=== PATIENT | female | born 1980 | race Caucasian/White ===

== ENCOUNTER 2016-06-17 19:55 | Emergency (ER) | payer OTHER ==
--- NOTE | 2016-06-17 20:41 | ED NURSING NOTES ---
Clinical Report - Nurses [facility] [address] [place] [address] 06/17/2016 19:57 Patient: TIO HAND TRIAGE Triage time 20:19 Jun 17 2016. Acuity: LEVEL 5. Chief Complaint: ITCHING and LICE. 20:22 06/17/16. SEPSIS SCREEN: Sepsis Screen. Negative (no infection suspected/documented). CL COMA SCORE: Cl Coma Scale: 15- eyes open spontaneously (4); best verbal response- oriented x 4 (5); best motor response- obeys commands (6). --20:22 Renetta Schmitt R.N. 20:22 06/17/16. BP: 140/91. HR: 91. RR: 16. O2 saturation: 100%. Temp: 98.9 F. Pain level now 0/10. --20:22 Renetta Schmitt R.N. Weight: 86.1 kg. Height/Length: 65 inches. BMI: 31.6. --20:19 Renetta Schmitt R.N. Medications Wellbutrin Oral, daily. --20:20 Renetta Schmitt R.N. Medication/allergy information source: the patient. --20:22 Renetta Schmitt R.N. Allergies Hydrocodone.(itching) --20:20 Renetta Schmitt R.N. History Arrived by private vehicle. Historian: patient. Accompanied by family. Onset. (weeks ago). No fever, weakness, cough, difficulty breathing or skin rash. Denies muscle aches. Treatment TRASH TRUCK DRIVER: (Nix- OTC). PAST MEDICAL HX: Immunizations: up-to-date. Denies current . SOCIAL HX: Never smoker. No alcohol use or drug use. No infectious disease exposure. ABUSE ASSESSMENT: No report of abuse. SELF HARM ASSESSMENT: A self harm assessment was performed. The patient answered "no" to the question "Have you recently felt down, depressed, or hopeless?", "Have you noticed less interest or pleasure in doing things?", "Do you have thoughts of harming or killing yourself?", "Are you here because you tried to hurt yourself?", "Have you ever tried to hurt yourself before today?", "Have you recently had thoughts about harming or killing others?" and "Do you have any dangerous items in your possession?". NUTRITIONAL RISK ASSESSMENT: The nutritional risk assessment revealed no deficiencies. FUNCTIONAL ASSESSMENT: Functional assessment: no impairments noted. LEARNING NEEDS ASSESSMENT: The learning needs assessment revealed no barriers. SKIN INTEGRITY ASSESSMENT: Skin integrity risk assessment completed. No skin integrity risk identified. --20:22 Renetta Schmitt R.N. PROBLEMS: Pyelonephritis. Pelvic Inflammatory Disease. Frequent UTI's . Migraine Headache. PTSD. --20:20 Renetta Schmitt R.N. ADDITIONAL SURGERIES: Appendectomy. Cholecystectomy. Knee Surgery. --20:20 Renetta Schmitt R.N. Interventions ID band on patient. --20:22 Renetta Schmitt R.N. PHYSICAL ASSESSMENT 20:23 06/17/16. GENERAL / NEURO / PSYCH: Alert. Oriented X 4. RESPIRATORY: Respirations not labored. Breath sounds within normal limits. CVS: Pulses within normal limits. SKIN: Skin intact. Skin is warm and dry. Normal skin turgor. --20:23 Renetta Schmitt R.N. NURSING PROGRESS NOTES 20:22 06/17/16. Patient ready for evaluation. --20:22 Renetta Schmitt R.N. DISPOSITION / DISCHARGE 20:53 06/17/16. Condition at departure: stable. No learning barriers present. Discharge instructions provided and reviewed with the patient. Reviewed medication(s) side effects, precautions, dosing and course information. Reviewed skin care instructions. Patient verbalized understanding. Written instructions provided in Greek. ( Reviewed instructions to launder clothing, bedding, and stuffed animals. Follow up with PCP in one week if symptoms do not improve.). The patient was discharged by the physician. She was discharged home and accompanied by family. She left the Emergency Department ambulatory and via private vehicle. Patient driving. --21:03 Mirtha Rubio 20:55 06/17/16. BP: deferred. HR: deferred. RR: deferred. O2 saturation: deferred. Temp: deferred. Pain level now deferred. --21:03 Mirtha Rubio. Locked/Released at 06/17/2016 21:03 by Mirtha Rubio,
--- NOTE | 2016-06-17 20:41 | ED CLINICAL REPORT ---
Clinical Report - Physicians/Mid Levels [facility] [address] [place] [address] 06/17/2016 19:57 Patient: TIO HAND Time Seen: 20:20; initial patient contact. Arrived- By private vehicle. Historian- patient. HISTORY OF PRESENT ILLNESS Chief Complaint: INSECT BITE. This started about 1 week ago and is still present. It is described as itchy. It has been located on the scalp. A cause has been identified. She had a recent insect bite. Similar symptoms previously: None. Recent medical care: Not recently seen/assessed. REVIEW OF SYSTEMS The patient received an insect bite. PAST HISTORY Pyelonephritis. Pelvic Inflammatory Disease. Frequent UTI's . Migraine Headache. PTSD. --20:20 Renetta Schmitt R.N. ADDITIONAL SURGERIES: Appendectomy. Cholecystectomy. Knee Surgery. Medications: Wellbutrin Oral, daily. Allergies: Hydrocodone.(itching). SOCIAL HISTORY Never smoker. No alcohol use or drug use. ADDITIONAL NOTES The nursing notes have been reviewed. PHYSICAL EXAM Vital Signs: 06/17/2016 20:22 BP: 140/91. HR: 91. RR: 16. O2 saturation: 100%. Temp: 98.9 F. Have been reviewed. Hypertensive. Heart rate normal. Respiratory rate normal. Temperature normal. Oxygen saturation normal. Appearance: Alert. Oriented X3. No acute distress. Skin: Rash present on the scalp (lice visualized). Neuro: Oriented X 3. PROGRESS AND PROCEDURES Disposition: Discharged home in good condition. Condition: good. CLINICAL IMPRESSION Head lice INSTRUCTIONS Prescription Medications: Permethrin 5% Cream: Shower and dry thoroughly, then apply cream to whole body from neck down, leave on 8 hours then shower thoroughly and launder clothes and bedclothes in hot water. Repeat in 1 week if needed. Dispense two (2) tubes. No refills. Follow-up: Screening today revealed the patient's blood pressure to be in the hypertensive range. The patient should follow up with a primary care provider for blood pressure management. (Electronically signed by Elías Fuller Dr. 06/17/2016 21:40)
--- NOTE | 2016-06-17 20:41 | ED CLINICAL REPORT ---
Clinical Report - Physicians/Mid Levels [facility] [address] [place] [address] 06/17/2016 19:57 Patient: TIO HAND Time Seen: 20:20; initial patient contact. Arrived- By private vehicle. Historian- patient. HISTORY OF PRESENT ILLNESS Chief Complaint: INSECT BITE. This started about 1 week ago and is still present. It is described as itchy. It has been located on the scalp. A cause has been identified. She had a recent insect bite. Similar symptoms previously: None. Recent medical care: Not recently seen/assessed. REVIEW OF SYSTEMS The patient received an insect bite. PAST HISTORY Pyelonephritis. Pelvic Inflammatory Disease. Frequent UTI's . Migraine Headache. PTSD. --20:20 Renetta Schmitt R.N. ADDITIONAL SURGERIES: Appendectomy. Cholecystectomy. Knee Surgery. Medications: Wellbutrin Oral, daily. Allergies: Hydrocodone.(itching). SOCIAL HISTORY Never smoker. No alcohol use or drug use. ADDITIONAL NOTES The nursing notes have been reviewed. PHYSICAL EXAM Vital Signs: 06/17/2016 20:22 BP: 140/91. HR: 91. RR: 16. O2 saturation: 100%. Temp: 98.9 F. Have been reviewed. Hypertensive. Heart rate normal. Respiratory rate normal. Temperature normal. Oxygen saturation normal. Appearance: Alert. Oriented X3. No acute distress. Skin: Rash present on the scalp (lice visualized). Neuro: Oriented X 3. PROGRESS AND PROCEDURES Disposition: Discharged home in good condition. Condition: good. CLINICAL IMPRESSION Head lice INSTRUCTIONS Prescription Medications: Permethrin 5% Cream: Shower and dry thoroughly, then apply cream to whole body from neck down, leave on 8 hours then shower thoroughly and launder clothes and bedclothes in hot water. Repeat in 1 week if needed. Dispense two (2) tubes. No refills. Follow-up: Screening today revealed the patient's blood pressure to be in the hypertensive range. The patient should follow up with a primary care provider for blood pressure management. (Electronically signed by Elías Fuller Dr. 06/17/2016 21:40)
--- NOTE | 2016-06-17 20:41 | ED NURSING NOTES ---
Clinical Report - Nurses [facility] [address] [place] [address] 06/17/2016 19:57 Patient: TIO HAND TRIAGE Triage time 20:19 Jun 17 2016. Acuity: LEVEL 5. Chief Complaint: ITCHING and LICE. 20:22 06/17/16. SEPSIS SCREEN: Sepsis Screen. Negative (no infection suspected/documented). CL COMA SCORE: Cl Coma Scale: 15- eyes open spontaneously (4); best verbal response- oriented x 4 (5); best motor response- obeys commands (6). --20:22 Renetta Schmitt R.N. 20:22 06/17/16. BP: 140/91. HR: 91. RR: 16. O2 saturation: 100%. Temp: 98.9 F. Pain level now 0/10. --20:22 Renetta Schmitt R.N. Weight: 86.1 kg. Height/Length: 65 inches. BMI: 31.6. --20:19 Renetta Schmitt R.N. Medications Wellbutrin Oral, daily. --20:20 Renetta Schmitt R.N. Medication/allergy information source: the patient. --20:22 Renetta Schmitt R.N. Allergies Hydrocodone.(itching) --20:20 Renetta Shcmitt R.N. History Arrived by private vehicle. Historian: patient. Accompanied by family. Onset. (weeks ago). No fever, weakness, cough, difficulty breathing or skin rash. Denies muscle aches. Treatment LOG FEEDER: (Nix- OTC). PAST MEDICAL HX: Immunizations: up-to-date. Denies current . SOCIAL HX: Never smoker. No alcohol use or drug use. No infectious disease exposure. ABUSE ASSESSMENT: No report of abuse. SELF HARM ASSESSMENT: A self harm assessment was performed. The patient answered "no" to the question "Have you recently felt down, depressed, or hopeless?", "Have you noticed less interest or pleasure in doing things?", "Do you have thoughts of harming or killing yourself?", "Are you here because you tried to hurt yourself?", "Have you ever tried to hurt yourself before today?", "Have you recently had thoughts about harming or killing others?" and "Do you have any dangerous items in your possession?". NUTRITIONAL RISK ASSESSMENT: The nutritional risk assessment revealed no deficiencies. FUNCTIONAL ASSESSMENT: Functional assessment: no impairments noted. LEARNING NEEDS ASSESSMENT: The learning needs assessment revealed no barriers. SKIN INTEGRITY ASSESSMENT: Skin integrity risk assessment completed. No skin integrity risk identified. --20:22 Renetta Schmitt R.N. PROBLEMS: Pyelonephritis. Pelvic Inflammatory Disease. Frequent UTI's . Migraine Headache. PTSD. --20:20 Renetta Schmitt R.N. ADDITIONAL SURGERIES: Appendectomy. Cholecystectomy. Knee Surgery. --20:20 Renetta Schmitt R.N. Interventions ID band on patient. --20:22 Renetta Schmitt R.N. PHYSICAL ASSESSMENT 20:23 06/17/16. GENERAL / NEURO / PSYCH: Alert. Oriented X 4. RESPIRATORY: Respirations not labored. Breath sounds within normal limits. CVS: Pulses within normal limits. SKIN: Skin intact. Skin is warm and dry. Normal skin turgor. --20:23 Renetta Schmitt R.N. NURSING PROGRESS NOTES 20:22 06/17/16. Patient ready for evaluation. --20:22 Renetta Schmitt R.N. DISPOSITION / DISCHARGE 20:53 06/17/16. Condition at departure: stable. No learning barriers present. Discharge instructions provided and reviewed with the patient. Reviewed medication(s) side effects, precautions, dosing and course information. Reviewed skin care instructions. Patient verbalized understanding. Written instructions provided in Georgian. ( Reviewed instructions to launder clothing, bedding, and stuffed animals. Follow up with PCP in one week if symptoms do not improve.). The patient was discharged by the physician. She was discharged home and accompanied by family. She left the Emergency Department ambulatory and via private vehicle. Patient driving. --21:03 Mirtha Rubio 20:55 06/17/16. BP: deferred. HR: deferred. RR: deferred. O2 saturation: deferred. Temp: deferred. Pain level now deferred. --21:03 Mirtha Rubio. Locked/Released at 06/17/2016 21:03 by Mirtha Rubio,
--- NOTE | 2016-06-17 21:40 | ED MED RECONCILIATION SUMMARY ---
Patient: TIO HAND Medication Reconciliation Report [facility] VisitID: [id number] [address] [place] [address] 36y, F Registration Date/Time: 06/17/2016 Weight: 86.1 kg Height/Length: 65 in. BMI: 31.6 ALLERGIES: Hydrocodone The patient's Home Medications are listed below: THE FOLLOWING MEDICATIONS NEED TO BE RECONCILED: Wellbutrin Oral, daily The source(s) of the original Home Medication information: patient The following Medications were given to the patient in the Emergency Department: None. The following Medications were prescribed to the patient: Permethrin 5% Cream: Shower and dry thoroughly, then apply cream to whole body from neck down, leave on 8 hours then shower thoroughly and launder clothes and bedclothes in hot water. Repeat in 1 week if needed. Dispense two (2) tubes. No refills. -- Elías Fuller Dr.
--- NOTE | 2016-06-17 21:40 | ED DISCHARGE INSTRUCTIONS ---
Patient: TIO AHND General Instructions [facility] VisitID: [id number] [address] [address] 36y, F Registration Date/Time: 06/17/2016 Head lice INSTRUCTIONS Prescription Medications: Permethrin 5% Cream: Shower and dry thoroughly, then apply cream to whole body from neck down, leave on 8 hours then shower thoroughly and launder clothes and bedclothes in hot water. Repeat in 1 week if needed. Dispense two (2) tubes. No refills. Follow-up: Screening today revealed the patient's blood pressure to be in the hypertensive range. The patient should follow up with a primary care provider for blood pressure management. ADDITIONAL INFORMATION Head Lice Lice are tiny insects about 1/4" in length. Head Lice infect the scalp only, causing scalp itching. Lice lay eggs called "nits" that look like tiny white specs stuck to the hair. They do not brush away or wash off like dandruff. Lice are easily spread by close contact with an infected person or by sharing personal items such as hats, copeland, brushes, towels and bedding. To live, adult lice must feed on blood. If the louse falls off a person, it dies within 1-2 days. Home Care: NIX Cream Rinse is an [id number] medicine that is often used to treat Head lice. If your doctor recommends this, use as follows: Wash hair with your regular shampoo. Rinse with water and towel dry. Apply enough NIX to soak the entire hair and scalp area including behind the ears and back of neck. Rinse after exactly 10 minutes. [NOTE: or breast feeding women and children under 2 years should not use these medicines until discussing with your doctor.] To remove the nits from your hair: After the medicine has been washed from your hair, apply a mixture of one cup vinegar and one cup water. Rinse after one hour. For a stronger effect, put a shower cap on and leave the vinegar in your hair overnight. Rinse your hair in the morning. Use a fine-toothed comb made for removing nits (you can get it from the drugstore). Stroke from your scalp to the end of the hair shaft. Repeat this once a day until all nits are gone. All personal head wear, scarves, coats, bed linens and towels should be treated by machine-washing in hot water. Dry on the hot cycle of the dryer for 20 minutes. Any clothing, bed linen or stuffed animals that cannot be washed this way should be dry-cleaned or sealed in a plastic bag for two weeks. Lice will during this time. Copeland, brushes, barrettes, hair ties and curlers may be treated in Lysol or rubbing alcohol for two hours or boiling in water for 5-10 minutes. If possible, vacuum all rugs, carpets and mattresses that were used while you were infected. Sex partners and household members should be treated at the same time to prevent re-infection. Avoid sexual contact until rechecked by your doctor to confirm that all lice are gone. Oral Benadryl (diphenhydramine) is an antihistamine available at drug and grocery stores. Unless a prescription antihistamine was given, Benadryl may be used to reduce itching if large areas of the skin are involved. Use lower doses during the daytime and higher doses at bedtime since the drug may make you sleepy. [NOTE: Do not use Benadryl if you have glaucoma or if you are a man with trouble urinating due to an enlarged prostate.] Claritin (loratidine) is an antihistamine that causes less drowsiness and is a good alternative for daytime use. Follow Up with your doctor or this facility if you are still having scalp itching or see live lice in your hair SEVEN DAYS after the first treatment. Get Prompt Medical Attention if any of the following occur: Itching gets worse and is not relieved by Benadryl Scalp becomes swollen or tender or pus drains from scalp sores Hair becomes matted or foul-smelling Trouble breathing Permethrin Topical cream What is this medicine? PERMETHRIN (per METH rin) skin cream is used to treat scabies. How should I use this medicine? This medicine is for external use only. Do not take by mouth. Follow the directions on the prescription label. A bath or shower is NOT recommended before applying this medicine. Thoroughly rub the cream into all skin surfaces, from your head to the soles of your feet. It is important to apply it everywhere on your body, not just where the rash is. Apply the cream between fingers and toe creases, in the folds of the wrist and waistline, in the cleft of the buttocks, on the genitals, and in the belly button. Use a toothpick to apply the cream beneath your fingernails and toenails. Nails should be cut short. If you have little or no hair, or you are applying the cream to an infant or young child, make sure you rub the cream into the neck, scalp, hairline, temples, and forehead. Leave it on for 8 to 14 hours, then remove it by bathing and shampooing. If you are applying this medicine to another person, wear plastic or disposable gloves to protect yourself from infestation. Do not get this medicine in your eyes. If you do, rinse out with plenty of cool tap water. Talk to your junior systems engineer regarding the use of this medicine in children. While this drug may be prescribed for children as young as 2 months of age for selected conditions, precautions do apply. What side effects may I notice from receiving this medicine? Side effects that usually do not require medical attention (report to your doctor or health medicare sales representative if they continue or are bothersome): itching numbness rash redness or mild swelling of the skin stinging or burning tingling sensation What may interact with this medicine? Interactions are not expected. Do not use any other skin products on the affected area without telling your doctor or health medicare sales representative. What if I miss a dose? This does not apply. Where should I keep my medicine? Keep out of the reach of children. Store at room temperature away from heat and direct light. Do not refrigerate or freeze. Throw away any unused medicine after the expiration date. What should I tell my health care provider before I take this medicine? They need to know if you have any of these conditions: asthma an unusual or allergic reaction to permethrin, veterinary or household insecticides, other medicines, chrysanthemums, foods, dyes, or preservatives or trying to get breast-feeding What should I watch for while using this medicine? It is not unusual for itching and rash to continue for as long as 2 to 4 weeks after treatment. These symptoms may be a temporary reaction to the remains of the mites. This does not mean this cream did not work or that it needs to be reapplied. If you feel that the itching and rash is intense or if it continues beyond 4 weeks, talk to your doctor or health medicare sales representative right away. Scabies is spread by direct skin contact with an infected person. Family members and sexual partners may require treatment with this medicine. You should discuss this with your doctor or health medicare sales representative. Using a normal washing cycle, you should wash all clothing, towels and bed linen that has touched your skin. You do not need to rewash clean clothing that has not yet been worn. [place], furniture, rugs, floors, and garcia do not need to be cleaned in any special manner. You have been given the following additional information: Lice, Head Permethrin Topical cream (Electronically signed by Elías Fuller Dr. 06/17/2016 21:40)
--- NOTE | 2016-06-17 21:40 | ED MAR SUMMARY ---
..... Medication Administration Record [address] [address], [place] [id number] Patient: TIO HAND Visit ID: [id number] 36y, F Weight: 86.1 kg Height/Length: 65 in BMI: 31.6 ALLERGIES: Hydrocodone
--- NOTE | 2016-06-17 21:40 | ED DISCHARGE INSTRUCTIONS ---
Patient: TIO HAND General Instructions VisitID: [id number] [address] [address] 36y, F Registration Date/Time: 06/17/2016 Head lice INSTRUCTIONS Prescription Medications: Permethrin 5% Cream: Shower and dry thoroughly, then apply cream to whole body from neck down, leave on 8 hours then shower thoroughly and launder clothes and bedclothes in hot water. Repeat in 1 week if needed. Dispense two (2) tubes. No refills. Follow-up: Screening today revealed the patient's blood pressure to be in the hypertensive range. The patient should follow up with a primary care provider for blood pressure management. ADDITIONAL INFORMATION Head Lice Lice are tiny insects about 1/4" in length. Head Lice infect the scalp only, causing scalp itching. Lice lay eggs called "nits" that look like tiny white specs stuck to the hair. They do not brush away or wash off like dandruff. Lice are easily spread by close contact with an infected person or by sharing personal items such as hats, copeland, brushes, towels and bedding. To live, adult lice must feed on blood. If the louse falls off a person, it dies within 1-2 days. Home Care: NIX Cream Rinse is an [id number] medicine that is often used to treat Head lice. If your doctor recommends this, use as follows: Wash hair with your regular shampoo. Rinse with water and towel dry. Apply enough NIX to soak the entire hair and scalp area including behind the ears and back of neck. Rinse after exactly 10 minutes. [NOTE: or breast feeding women and children under 2 years should not use these medicines until discussing with your doctor.] To remove the nits from your hair: After the medicine has been washed from your hair, apply a mixture of one cup vinegar and one cup water. Rinse after one hour. For a stronger effect, put a shower cap on and leave the vinegar in your hair overnight. Rinse your hair in the morning. Use a fine-toothed comb made for removing nits (you can get it from the drugstore). Stroke from your scalp to the end of the hair shaft. Repeat this once a day until all nits are gone. All personal head wear, scarves, coats, bed linens and towels should be treated by machine-washing in hot water. Dry on the hot cycle of the dryer for 20 minutes. Any clothing, bed linen or stuffed animals that cannot be washed this way should be dry-cleaned or sealed in a plastic bag for two weeks. Lice will during this time. Copeland, brushes, barrettes, hair ties and curlers may be treated in Lysol or rubbing alcohol for two hours or boiling in water for 5-10 minutes. If possible, vacuum all rugs, carpets and mattresses that were used while you were infected. Sex partners and household members should be treated at the same time to prevent re-infection. Avoid sexual contact until rechecked by your doctor to confirm that all lice are gone. Oral Benadryl (diphenhydramine) is an antihistamine available at drug and grocery stores. Unless a prescription antihistamine was given, Benadryl may be used to reduce itching if large areas of the skin are involved. Use lower doses during the daytime and higher doses at bedtime since the drug may make you sleepy. [NOTE: Do not use Benadryl if you have glaucoma or if you are a man with trouble urinating due to an enlarged prostate.] Claritin (loratidine) is an antihistamine that causes less drowsiness and is a good alternative for daytime use. Follow Up with your doctor or this facility if you are still having scalp itching or see live lice in your hair SEVEN DAYS after the first treatment. Get Prompt Medical Attention if any of the following occur: Itching gets worse and is not relieved by Benadryl Scalp becomes swollen or tender or pus drains from scalp sores Hair becomes matted or foul-smelling Trouble breathing Permethrin Topical cream What is this medicine? PERMETHRIN (per METH rin) skin cream is used to treat scabies. How should I use this medicine? This medicine is for external use only. Do not take by mouth. Follow the directions on the prescription label. A bath or shower is NOT recommended before applying this medicine. Thoroughly rub the cream into all skin surfaces, from your head to the soles of your feet. It is important to apply it everywhere on your body, not just where the rash is. Apply the cream between fingers and toe creases, in the folds of the wrist and waistline, in the cleft of the buttocks, on the genitals, and in the belly button. Use a toothpick to apply the cream beneath your fingernails and toenails. Nails should be cut short. If you have little or no hair, or you are applying the cream to an infant or young child, make sure you rub the cream into the neck, scalp, hairline, temples, and forehead. Leave it on for 8 to 14 hours, then remove it by bathing and shampooing. If you are applying this medicine to another person, wear plastic or disposable gloves to protect yourself from infestation. Do not get this medicine in your eyes. If you do, rinse out with plenty of cool tap water. Talk to your bow maker custom regarding the use of this medicine in children. While this drug may be prescribed for children as young as 2 months of age for selected conditions, precautions do apply. What side effects may I notice from receiving this medicine? Side effects that usually do not require medical attention (report to your doctor or health home health care case manager if they continue or are bothersome): itching numbness rash redness or mild swelling of the skin stinging or burning tingling sensation What may interact with this medicine? Interactions are not expected. Do not use any other skin products on the affected area without telling your doctor or health home health care case manager. What if I miss a dose? This does not apply. Where should I keep my medicine? Keep out of the reach of children. Store at room temperature away from heat and direct light. Do not refrigerate or freeze. Throw away any unused medicine after the expiration date. What should I tell my health care provider before I take this medicine? They need to know if you have any of these conditions: asthma an unusual or allergic reaction to permethrin, veterinary or household insecticides, other medicines, chrysanthemums, foods, dyes, or preservatives or trying to get breast-feeding What should I watch for while using this medicine? It is not unusual for itching and rash to continue for as long as 2 to 4 weeks after treatment. These symptoms may be a temporary reaction to the remains of the mites. This does not mean this cream did not work or that it needs to be reapplied. If you feel that the itching and rash is intense or if it continues beyond 4 weeks, talk to your doctor or health home health care case manager right away. Scabies is spread by direct skin contact with an infected person. Family members and sexual partners may require treatment with this medicine. You should discuss this with your doctor or health home health care case manager. Using a normal washing cycle, you should wash all clothing, towels and bed linen that has touched your skin. You do not need to rewash clean clothing that has not yet been worn. [place], furniture, rugs, floors, and garcia do not need to be cleaned in any special manner. You have been given the following additional information: Lice, Head Permethrin Topical cream (Electronically signed by Elías Fuller Dr. 06/17/2016 21:40)
--- NOTE | 2016-06-17 21:40 | ED MAR SUMMARY ---
..... Medication Administration Record [facility] [address], [place] [id number] Patient: TIO HAND Visit ID: [id number] 36y, F Weight: 86.1 kg Height/Length: 65 in BMI: 31.6 ALLERGIES: Hydrocodone
--- NOTE | 2016-06-17 21:40 | ED MED RECONCILIATION SUMMARY ---
Patient: TIO HAND Medication Reconciliation Report [facility] VisitID: [id number] [address] [place] [address] 36y, F Registration Date/Time: 06/17/2016 Weight: 86.1 kg Height/Length: 65 in. BMI: 31.6 ALLERGIES: Hydrocodone The patient's Home Medications are listed below: THE FOLLOWING MEDICATIONS NEED TO BE RECONCILED: Wellbutrin Oral, daily The source(s) of the original Home Medication information: patient The following Medications were given to the patient in the Emergency Department: None. The following Medications were prescribed to the patient: Permethrin 5% Cream: Shower and dry thoroughly, then apply cream to whole body from neck down, leave on 8 hours then shower thoroughly and launder clothes and bedclothes in hot water. Repeat in 1 week if needed. Dispense two (2) tubes. No refills. -- Elías Fuller Dr.
== END 2016-06-17 20:55 | disposition home or self-care (01) ==
LOC: ED SRH 19:55
DX: B85.0 Pediculosis due to Pediculus humanus capitis (principal); W57.XXXA Bitten or stung by nonvenomous insect and other nonvenomous arthropods, initial encounter; Y93.9 Activity, unspecified; Y92.9 Unspecified place or not applicable; Y99.9 Unspecified external cause status; Z88.5 Allergy status to narcotic agent; Z79.899 Other long term (current) drug therapy

== ENCOUNTER 2016-09-15 19:14 | Emergency (ER) | payer OTHER ==
--- NOTE | 2016-09-15 23:20 | ED NURSING NOTES ---
Clinical Report - Nurses [facility] [address] [place] [address] 09/15/2016 19:18 Patient: TIO HAND TRIAGE Triage time 19:Sep 15 2016. Acuity: LEVEL 3. Chief Complaint: BACK PAIN. SEPSIS SCREEN: Sepsis Screen: negative. Negative (no infection suspected/documented). ROSMERY COMA SCORE: [place] Coma Scale: 15- eyes open spontaneously (4); best verbal response- oriented x 4 (5); best motor response- obeys commands (6). --19:25 Mirtha Rubio 19:22 09/15/16. BP: 124/71. HR: 90. RR: 20. O2 saturation: 100% on room air. Temp: 98.2 F (oral). Pain level now: 11/14. --19:25 Mirtha Rubio. Weight: 86.1 kg stated. Height/Length: 65 inches Per Patient. BMI: 31.6. --19:23 Mirtha Rubio. Medications Wellbutrin Oral, daily. --19:24 Mirtha Rubio. Allergies Hydrocodone.(itching) --19:24 Mirtha Rubio. Medication/allergy information source: the patient. --19:25 Mirtha Rubio. History Arrived by private vehicle. Historian: patient. Accompanied by family. Primary physician (nyasia simental [place]). This started today. ( Patient reports that she has been having lower back pain that radiates into her shoulders for about three days. She attempted to make an appointment with her PCP but her pain got worse today.). No history of recent trauma. PAST MEDICAL HX: Tetanus status: up-to-date. Immunizations: up-to-date. Last normal menstrual period- August 16. SOCIAL HX: Never smoker. Occasional alcohol use. No drug use. No infectious disease exposure. ABUSE ASSESSMENT: No report of abuse. FALL RISK ASSESSMENT: Fall risk assessment completed. No fall risk identified. NUTRITIONAL RISK ASSESSMENT: The nutritional risk assessment revealed no deficiencies. FUNCTIONAL ASSESSMENT: Functional assessment: no impairments noted. LEARNING NEEDS ASSESSMENT: The learning needs assessment revealed no barriers. SKIN INTEGRITY ASSESSMENT: Skin integrity risk assessment completed. No skin integrity risk identified. --19:25 Mirtha Rubio. PROBLEMS: Pelvic Inflammatory Disease. Frequent UTI's . Migraine Headache. PTSD. --19:24 Mirtha Rubio. ADDITIONAL SURGERIES: Appendectomy. Cholecystectomy. Knee Surgery. --19:24 Mirtha Rubio. Interventions ID band on patient. To treatment room. --19:25 Mirtha Rubio. PHYSICAL ASSESSMENT :09/15/16. GENERAL / NEURO / PSYCH: Alert. Oriented X 4. Appears in no acute distress. RESPIRATORY: Respirations not labored. CVS: Normal heart rate and rhythm. GI / : Abdomen soft. EXTREMITIES: Sensation intact in extremities. ROM of extremities within normal limits. BACK: Normal inspection of the neck and back. ROM of neck and back within normal limits. --19:26 Mirtha Rubio. NURSING PROGRESS NOTES :09/15/16. Cold pack applied. Patient gowned. Warming measures: blanket applied. Reassurance given to the patient. Two patient identifiers checked. Call light placed in reach. Side rails up x 1. Bed placed in lowest position. Brakes of bed on. Patient ready for evaluation- chart flagged and ED physician notified. --19:26 Mirtha Rubio ( Patient made aware of need for urine. Patient given PO with provider permission). --19:33 Mirtha Rubio 19:39 09/15/2016 Toradol (Ketorolac Tromethamine) IM 60 mg given. Given in the left gluteus stephanie. Allergies verified and confirmed 5 rights. --19:39 Mirtha Rubio Patient ID band checked for patient name and birthdate: patient confirmed. Instructions provided to collect clean catch urine and patient verbalized understanding. Clean catch urine collected with return of yellow-colored clear urine; sample sent to lab for urinalysis and HCG. Specimen labeled in the presence of the patient. --20:40 Mirtha Rubio 21:11 09/15/2016 Site #1 started via IV in the right antecubital space with an 20g angiocath, with aseptic technique and good blood return; one attempt. Blood drawn: rainbow set. Labeled in the presence of the patient and sent to the lab. Saline lock flushed with 10 mL saline. --21:16 Mirtha Rubio PELVIC EXAM: Pelvic exam performed by PA. Assisted by one nurse. Preparation: pelvic tray; patient placed in lithotomy position. Procedure: speculum and bimanual exam. Status post-procedure: she was stable and no complications were noted. Total time of assist / procedure: 15 minutes. --21:19 Mirtha Rubio ( Discussed patients result discussed with her. Patient upset about lab results. Plan of care discussed with patient and patient is agreeable to the plan at this time.). --21:20 Mirtha Rubio 21:20 09/15/16. BP: 120/66. HR: 84. RR: 20. O2 saturation: 100% on room air. Pain level now: 09/14. --21:48 Mirtha Rubio ( Ultrasound paged). --21:48 Mirtha Rubio The patient is resting quietly. --21:48 Mirtha Rubio 21:48 09/15/16. BP: 112/67. HR: 90. RR: 20. O2 saturation: 100% on room air. --21:48 Mirtha Rubio 22:01 Ultrasound at bedside. --22:01 McQuoid, Linsey, ER Tech1 22:45 09/15/16. BP: 119/59. HR: 72. RR: 20. O2 saturation: 99% on room air. --22:45 Mirtha Rubio. DISPOSITION / DISCHARGE 23:22 09/15/16. BP: 131/80. HR: 78. O2 saturation: 100% on room air. --23:22 McQuoid, Linsey, ER Tech1 23:30 09/15/16. Pain level now: 07/15. --23:32 Mirtha Rubio 23:32 09/15/2016 Site #1 removed upon discharge. Catheter intact. Bandaid applied. --23:32 Mirtha Rubio 23:32 09/15/16. Condition at departure: stable. The goals identified in the patient's plan of care were met. No learning barriers present. Discharge instructions provided and reviewed with the patient. Reviewed medication(s) side effects, precautions, dosing and course information. Prescription(s) given to the patient. Reviewed need for increased fluid intake. Patient verbalized understanding. Written instructions provided in Croatian. ( You need to follow up with your PCP for a next available appointment. Call tomorrow. Return if your symptoms worsen, if you have sudden onset of fever, bleeding or pain. You will need follow up to determine next course of treatment. Patient agreeable to plan and will follow up tomorrow.). The patient was discharged by the nurse practitioner. She was discharged home and accompanied by phonograph cartridge assembler. She left the Emergency Department ambulatory and via private vehicle. Patient driving. FALL RISK ASSESSMENT: Fall risk assessment completed. No fall risk identified. --23:32 Mirtha Rubio. Locked/Released at 09/15/2016 23:44 by Mirtha Rubio,
--- NOTE | 2016-09-15 23:20 | ED ORDER SUMMARY ---
..... Patient: TIO HAND OrderSheet [facility] VisitID: [id number] [address] [place] [address] 36y, F Registration Date/Time: 09/15/2016 ORDER SHEET Weight: 86.1 kg (stated) Allergies: Hydrocodone GENERAL ORDERS: UA-Culture if indicated Urgent (:09/15/2016 HBivens A.R.N.P.) (Ack 19:35 LMuller) (20:46 AMcQuoid ER Tech1) Urine Urgent (:09/15/2016 HBivens A.R.N.P.) (Ack 19:35 LMuller) (20:46 AMcQuoid ER Tech1) US OB 1st Trimester w Transvag (4 wks ago) Urgent (21:09/15/2016 HBivens A.R.N.P.) (Ack 21:02 LMuller) (22:39 LMuller) CBC w Diff Urgent (:09/15/2016 HBivens A.R.N.P.) (Ack 21:02 LMuller) (21:53 AMcQuoid ER Tech1) CMP Urgent (:09/15/2016 HBivens A.R.N.P.) (Ack 21:02 LMuller) (21:53 AMcQuoid ER Tech1) Serum Quantitative Urgent (:09/15/2016 HBivens A.R.N.P.) (Ack 21:02 LMuller) (21:53 AMcQuoid ER Tech1) Pelvic Exam Setup (:09/15/2016 HBivens A.R.N.P.) (Ack 21:02 LMuller) (21:15 HSoule) Pelvis 1 or 2V Urgent (23:08 09/15/2016 HBivens A.R.N.P.) (Ack 23:10 LMuller) (23:18 HBivens A.R.N.P.) (Cancelled: Other23:18 HBivens A.R.N.P.) MEDICATION ORDERS: Toradol IM 60 mg (NOW) (19:34 09/15/2016 HBivens A.R.N.P.) (Ack 19:35 HSoule) (19:39 HSoule) IV FLUIDS: ORDER SHEET NOTES: [Electronically signed by Mirtha Rubio (23:44 09/15/2016)] [Electronically signed by Kimi Crocker.R.N.POniel (13:03 09/16/2016)] [Electronically locked/signed by Mirtha Rubio (23:44 09/15/2016)]
--- NOTE | 2016-09-15 23:20 | ED NURSING NOTES ---
Clinical Report - Nurses [facility] [address] [place] [address] 09/15/2016 19:18 Patient: TIO HAND TRIAGE Triage time 19:Sep 15 2016. Acuity: LEVEL 3. Chief Complaint: BACK PAIN. SEPSIS SCREEN: Sepsis Screen: negative. Negative (no infection suspected/documented). ROSMERY COMA SCORE: [place] Coma Scale: 15- eyes open spontaneously (4); best verbal response- oriented x 4 (5); best motor response- obeys commands (6). --19:25 Mirtha Rubio 19:22 09/15/16. BP: 124/71. HR: 90. RR: 20. O2 saturation: 100% on room air. Temp: 98.2 F (oral). Pain level now: 11/14. --19:25 Mirtha Rubio. Weight: 86.1 kg stated. Height/Length: 65 inches Per Patient. BMI: 31.6. --19:23 Mirtha Rubio. Medications Wellbutrin Oral, daily. --19:24 Mirtha Rubio. Allergies Hydrocodone.(itching) --19:24 Mirtha Rubio. Medication/allergy information source: the patient. --19:25 Mirtha Rubio. History Arrived by private vehicle. Historian: patient. Accompanied by family. Primary physician (nyasia simental [place]). This started today. ( Patient reports that she has been having lower back pain that radiates into her shoulders for about three days. She attempted to make an appointment with her PCP but her pain got worse today.). No history of recent trauma. PAST MEDICAL HX: Tetanus status: up-to-date. Immunizations: up-to-date. Last normal menstrual period- August 16. SOCIAL HX: Never smoker. Occasional alcohol use. No drug use. No infectious disease exposure. ABUSE ASSESSMENT: No report of abuse. FALL RISK ASSESSMENT: Fall risk assessment completed. No fall risk identified. NUTRITIONAL RISK ASSESSMENT: The nutritional risk assessment revealed no deficiencies. FUNCTIONAL ASSESSMENT: Functional assessment: no impairments noted. LEARNING NEEDS ASSESSMENT: The learning needs assessment revealed no barriers. SKIN INTEGRITY ASSESSMENT: Skin integrity risk assessment completed. No skin integrity risk identified. --19:25 Mirtha Rubio. PROBLEMS: Pelvic Inflammatory Disease. Frequent UTI's . Migraine Headache. PTSD. --19:24 Mirtha Rubio. ADDITIONAL SURGERIES: Appendectomy. Cholecystectomy. Knee Surgery. --19:24 Mirtha Rubio. Interventions ID band on patient. To treatment room. --19:25 Mirtha Rubio. PHYSICAL ASSESSMENT :09/15/16. GENERAL / NEURO / PSYCH: Alert. Oriented X 4. Appears in no acute distress. RESPIRATORY: Respirations not labored. CVS: Normal heart rate and rhythm. GI / : Abdomen soft. EXTREMITIES: Sensation intact in extremities. ROM of extremities within normal limits. BACK: Normal inspection of the neck and back. ROM of neck and back within normal limits. --19:26 Mirtha Rubio. NURSING PROGRESS NOTES :09/15/16. Cold pack applied. Patient gowned. Warming measures: blanket applied. Reassurance given to the patient. Two patient identifiers checked. Call light placed in reach. Side rails up x 1. Bed placed in lowest position. Brakes of bed on. Patient ready for evaluation- chart flagged and ED physician notified. --19:26 Mirtha Rubio ( Patient made aware of need for urine. Patient given PO with provider permission). --19:33 Mirtha Rubio 19:39 09/15/2016 Toradol (Ketorolac Tromethamine) IM 60 mg given. Given in the left gluteus stephanie. Allergies verified and confirmed 5 rights. --19:39 Mirtha Rubio Patient ID band checked for patient name and birthdate: patient confirmed. Instructions provided to collect clean catch urine and patient verbalized understanding. Clean catch urine collected with return of yellow-colored clear urine; sample sent to lab for urinalysis and HCG. Specimen labeled in the presence of the patient. --20:40 Mirtha Rubio 21:11 09/15/2016 Site #1 started via IV in the right antecubital space with an 20g angiocath, with aseptic technique and good blood return; one attempt. Blood drawn: rainbow set. Labeled in the presence of the patient and sent to the lab. Saline lock flushed with 10 mL saline. --21:16 Mirtha Rubio PELVIC EXAM: Pelvic exam performed by PA. Assisted by one nurse. Preparation: pelvic tray; patient placed in lithotomy position. Procedure: speculum and bimanual exam. Status post-procedure: she was stable and no complications were noted. Total time of assist / procedure: 15 minutes. --21:19 Mirtha Rubio ( Discussed patients result discussed with her. Patient upset about lab results. Plan of care discussed with patient and patient is agreeable to the plan at this time.). --21:20 Mirtha Rubio 21:20 09/15/16. BP: 120/66. HR: 84. RR: 20. O2 saturation: 100% on room air. Pain level now: 09/14. --21:48 Mirtha Rubio ( Ultrasound paged). --21:48 Mirtha Rubio The patient is resting quietly. --21:48 Mirtha Rubio 21:48 09/15/16. BP: 112/67. HR: 90. RR: 20. O2 saturation: 100% on room air. --21:48 Mirtha Rubio 22:01 Ultrasound at bedside. --22:01 McQuoid, Linsey, ER Tech1 22:45 09/15/16. BP: 119/59. HR: 72. RR: 20. O2 saturation: 99% on room air. --22:45 Mirtha Rubio. DISPOSITION / DISCHARGE 23:22 09/15/16. BP: 131/80. HR: 78. O2 saturation: 100% on room air. --23:22 McQuoid, Linsey, ER Tech1 23:30 09/15/16. Pain level now: 07/15. --23:32 Mirtha Rubio 23:32 09/15/2016 Site #1 removed upon discharge. Catheter intact. Bandaid applied. --23:32 Mirtha Rubio 23:32 09/15/16. Condition at departure: stable. The goals identified in the patient's plan of care were met. No learning barriers present. Discharge instructions provided and reviewed with the patient. Reviewed medication(s) side effects, precautions, dosing and course information. Prescription(s) given to the patient. Reviewed need for increased fluid intake. Patient verbalized understanding. Written instructions provided in Thai. ( You need to follow up with your PCP for a next available appointment. Call tomorrow. Return if your symptoms worsen, if you have sudden onset of fever, bleeding or pain. You will need follow up to determine next course of treatment. Patient agreeable to plan and will follow up tomorrow.). The patient was discharged by the nurse practitioner. She was discharged home and accompanied by legal services manager. She left the Emergency Department ambulatory and via private vehicle. Patient driving. FALL RISK ASSESSMENT: Fall risk assessment completed. No fall risk identified. --23:32 Mirtha Rubio. Locked/Released at 09/15/2016 23:44 by Mirtha Rubio,
--- NOTE | 2016-09-15 23:20 | ED CLINICAL REPORT ---
Clinical Report - Physicians/Mid Levels [facility] [address] [place] [place] [address] 09/15/2016 19:18 Patient: TIO HAND Time Seen: 19:30; initial patient contact, initial documentation, patient care assumed. Arrived- By private vehicle. Historian- patient. HISTORY OF PRESENT ILLNESS Chief Complaint: BACK PAIN. It is described as being severe and in the area of the left side of the mid-thoracic spine, right side of the mid-thoracic spine, left side of the lower thoracic spine and right side of the lower thoracic spine. It is described as radiating to the right shoulder and to the left shoulder. The quality is noted to be "pain". Modifying factors. Not worsened by anything. Not relieved by anything. Onset- about 3 days ago and it is still present. It was abrupt in onset and has been intermittent and waxing/waning. No bladder dysfunction, bowel dysfunction, sensory loss or motor loss. Patient denies an injury but injury to the head or chest. No other injury. Similar symptoms previously: None. Recent medical care: Not recently seen/assessed. REVIEW OF SYSTEMS No fever, difficulty breathing, chest pain, abdominal pain or vomiting. No diarrhea, difficulty with urination, hematuria or vaginal discharge. [facility], no issues with [facility], last period 08/16. All systems otherwise negative, except as recorded above. PAST HISTORY See nurses notes. PROBLEMS: Pelvic Inflammatory Disease. Frequent UTI's . Migraine Headache. PTSD. --19:24 Mirtha Rubio. ADDITIONAL SURGERIES: Appendectomy. Cholecystectomy. Knee Surgery. --19:24 Mirtha Rubio. SOCIAL HISTORY Never smoker. Occasional alcohol use. No drug use. No recent travel. Is a local resident. FAMILY HISTORY Negative. ADDITIONAL NOTES The nursing notes have been reviewed with agreement regarding the chief complaint, HPI, ROS, PMH and patient medications and allergies. PHYSICAL EXAM Vital Signs: 09/15/2016 19:22 BP: 124/71. HR: 90. RR: 20. O2 saturation: 100%. Temp: 98.2 F. Pain level now: 11/14. Have been reviewed as normal and appear to be correct. Appearance: Alert. No acute distress. HEENT: Normal external inspection. Eyes: Pupils equal, round and reactive to light. Neck: Normal inspection. Neck nontender. Painless ROM. CVS: Normal heart rate and rhythm. Heart sounds normal. Pulses normal. Respiratory: No respiratory distress. Breath sounds normal. Chest nontender. Abdomen: Normal inspection. Soft and nontender. Bowel sounds normal. No organomegaly. No mass. Back: Normal inspection. No tenderness. Painless ROM. : Genital inspection normal. Rectal: (no iud strings seen or felt dehydrating press operator rodrick Shannon at bedside). Skin: Skin warm and dry. Normal skin color. No rash. Normal skin turgor. Extremities: Extremities exhibit normal ROM. Extremities nontender. Neuro: Oriented X 3. Mood/affect normal. No motor deficit. No sensory deficit. LABS, X-RAYS, AND EKG Laboratory Tests: . UA-Culture if indicated: (RADHA: 09/15/2016 20:38) ( [facility] Final results Test Result Flag Units (Reference) URINE COLOR YELLOW URINE APPEARANCE CLEAR URINE GLUCOSE NEGATIVE (NEGATIVE) URINE BILIRUBIN NEGATIVE (NEGATIVE) URINE KETONE NEGATIVE (NEGATIVE) URINE SPECIFIC GRAVITY 1.025 (1.010-1.030) URINE PH 5.5 (5.0-8.0) URINE PROTEIN NEGATIVE (NEGATIVE) URINE UROBILINOGEN 0.2 EU/dL (0.2-1.0) URINE NITRITE POSITIVE (NEGATIVE) URINE BLOOD 1+ (NEGATIVE) URINE LEUK ESTERASE NEGATIVE (NEGATIVE) URINE RBC 1-3 rbc/hpf (0-1) URINE WBC 1-3 wbc/hpf (0-1) URINE EPITHELIAL CELLS 1-3 EPI/hpf (0-5) URINE BACTERIA MANY (4+) (NONE SEEN) URINE COMMENT CULTURE INDICATED URINE CULTURES ARE SET-UP BASED ON THE FOLLOWING CRITERIA:POSITIVE NITRITEPOSITIVE LEUKOCYTE ESTERASEGREATER THAN 10 WHITE BLOOD CELLSMODERATE (2+) OR GREATER BACTERIA Urine: (RADHA: 09/15/2016 20:38) ( MsgRcvd 09/15/2016 20:52) Final results Test Result Flag Units (Reference) URINE POSITIVE CBC w Diff: (RADHA: 09/15/2016 21:05) ( MsgRcvd 09/15/2016 21:38) Final results Test Result Flag Units (Reference) WHITE BLOOD COUNT 8.9 K/uL (4.5-11.5) RED BLOOD COUNT 4.36 M/uL (4.00-5.20) HEMOGLOBIN 11.9 L gm/dL (12.0-16.0) HEMATOCRIT 36.6 % (36.0-46.0) MEAN CELL VOLUME 84 fL (80-100) MEAN CORPUSCULAR HGB 27 pg (26-34) MEAN CORPUSCULAR HGB CONC 33 g/dL (31-37) RED CELL DISTRIBUTION WIDTH 15.4 H % (11.6-14.8) PLATELET COUNT 390 K/uL (150-400) NEUTROPHIL % 64.9 % (50-75) LYMPH % 24.3 L % (25-40) MONO % 7.2 % (3-14) EOSINOPHIL % 2.9 % (0-4) BASOPHIL % 0.7 % (0-2) CMP: (RADHA: 09/15/2016 21:05) ( MsgRcvd 09/15/2016 21:45) Final results Test Result Flag Units (Reference) GLUCOSE 90 mg/dL (70-110) BUN 11 mg/dL (7-18) CREATININE 0.9 mg/dL (0.6-1.3) Estimated GFR >60 mL/min Estimated GFR- >60 mL/min Note: Persistent reduction over 3 months in eGFR<60 mL/min/1.73 m2 defines CKD. Patients with eGFR values>=60 mL/min/1.73 m2 may also have CKD if evidence ofpersistent proteinuria. Additional information may be foundat www.kidney.org. SODIUM 143 mmol/L (136-145) POTASSIUM 3.6 mmol/L (3.5-5.1) CHLORIDE 107 mmol/L (98-107) CARBON DIOXIDE 27 mmol/L (21-32) CALCIUM 9.1 mg/dL (8.5-10.1) TOTAL PROTEIN 7.6 g/dL (6.4-8.2) ALBUMIN 3.8 g/dL (3.3-5.0) BILIRUBIN, TOTAL 0.2 mg/dL (0.0-1.0) ALKALINE PHOSPHATASE 63 U/L (46-116) AST (SGOT) 11 L U/L (15-37) ALT (SGPT) 21 U/L (12-78) BETA HCG, QUANTITATIVE 158 mIU/mL REFERENCE RANGE:Adult Males: <2 mIU/mLNon- Females: <6 mIU/mL Females:Approximate Approximate hCGGestational Age Range (mIU/mL) 0-1 week 0-501-2 weeks 40-3002-3 weeks 100-83061-0 weeks 500-94919-3 months 5,000-200,0002-3 months 10,000-100,0002nd trimester 3,000-50,0003rd trimester 1,000-50,000 . Note - Tests: (US Pelvis no iud too early for , thickened endometrium can't find iud, recommending ap pelvis and possible ct if iud can't be found, ct can be done f/u if not emergent s/s per discussion with Dr Berg). PROGRESS AND PROCEDURES Course of Care: 2099. pt informed with ua results and + hcg, pt surprised because of her iud placement, more orders placed for blood work and us, pelvic exam done with dehydrating press operator nurse Mirtha, exam normal 2219. US in progress 2314. had long discussion with pt re US results, more testing needs done to search for IUD, xray, possible ct, whether pt wants to continue with or not, future ob care, tx for uti, pt does not want to do any imaging here, she wants to f/u with her dr tomorrow re IUD and issue, agreed to dc, since pt does not show any signs of emergent iud displacement, hemorrhage, ectopic. Patient counseled in person regarding the patient's stable condition, test results and diagnosis. Differential Diagnosis: I considered Musculo-skeletal strain, contusion, retroperitoneal hematoma, disk protrusion, vertebral fracture, facet syndrome, osteoarthritis, ankylosing spondylitis, pyelonephritis, pneumonia and ureterolithiasis as a possible cause of back pain in this patient. This is a partial list of diagnoses considered. Other possible considerations: kidney stone, uti, pyelo, muscle strain. Above considerations are based on history, physical exam, reassessment and laboratory data. Differential diagnosis was discussed with patient. Disposition: Discharged home in good and unchanged condition. Condition: good and stable. CLINICAL IMPRESSION Acute urinary tract infection with cystitis. No pyelonephritis or hematuria. Not associated with indwelling catheter or obstruction. ; positive test in emergency department. INSTRUCTIONS No sexual contact until released. Warnings: GENERAL WARNINGS: Return or contact your physician immediately if your condition worsens or changes unexpectedly, if not improving as expected, or if other problems arise. increased abdominal pain, fever, persistent vomiting, chest pain or vaginal bleeding. Prescription Medications: Zofran 4 mg: Take 1 orally every six hours as needed for nausea/vomiting. Dispense ten (10). No refills. Substitution is permissible. Macrobid 100 mg: Take 1 capsule orally every 12 hours for 7 days. No refills. Substitution is permissible. Follow-up: Follow up with your doctor tomorrow even if well. Call for an appointment. Summary of care provided to patient. Understanding of the discharge instructions verbalized by patient. Follow-up with: Jonas Matos MD, Obstetrics/Gynecology, , [facility], [address] [place] [address] Follow up in about two days as needed. Call for an appointment. Summary of care provided to patient. (Electronically signed by Kimi Crocker A.R.N.P. 09/16/2016 13:03)
--- NOTE | 2016-09-15 23:20 | ED ORDER SUMMARY ---
..... Patient: TIO HAND OrderSheet [facility] VisitID: [id number] [address] [place] [address] 36y, F Registration Date/Time: 09/15/2016 ORDER SHEET Weight: 86.1 kg (stated) Allergies: Hydrocodone GENERAL ORDERS: UA-Culture if indicated Urgent (:09/15/2016 HBivens A.R.N.P.) (Ack 19:35 LMuller) (20:46 AMcQuoid ER Tech1) Urine Urgent (:09/15/2016 HBivens A.R.N.P.) (Ack 19:35 LMuller) (20:46 AMcQuoid ER Tech1) US OB 1st Trimester w Transvag (4 wks ago) Urgent (21:09/15/2016 HBivens A.R.N.P.) (Ack 21:02 LMuller) (22:39 LMuller) CBC w Diff Urgent (:09/15/2016 HBivens A.R.N.P.) (Ack 21:02 LMuller) (21:53 AMcQuoid ER Tech1) CMP Urgent (:09/15/2016 HBivens A.R.N.P.) (Ack 21:02 LMuller) (21:53 AMcQuoid ER Tech1) Serum Quantitative Urgent (:09/15/2016 HBivens A.R.N.P.) (Ack 21:02 LMuller) (21:53 AMcQuoid ER Tech1) Pelvic Exam Setup (:09/15/2016 HBivens A.R.N.P.) (Ack 21:02 LMuller) (21:15 HSoule) Pelvis 1 or 2V Urgent (23:08 09/15/2016 HBivens A.R.N.P.) (Ack 23:10 LMuller) (23:18 HBivens A.R.N.P.) (Cancelled: Other23:18 HBivens A.R.N.P.) MEDICATION ORDERS: Toradol IM 60 mg (NOW) (19:34 09/15/2016 HBivens A.R.N.P.) (Ack 19:35 HSoule) (19:39 HSoule) IV FLUIDS: ORDER SHEET NOTES: [Electronically signed by Mirtha Rubio (23:44 09/15/2016)] [Electronically signed by Kimi Crocker.R.N.POniel (13:03 09/16/2016)] [Electronically locked/signed by Mirtha Rubio (23:44 09/15/2016)]
--- NOTE | 2016-09-15 23:20 | ED CLINICAL REPORT ---
Clinical Report - Physicians/Mid Levels [facility] [address] [place] [address] 09/15/2016 19:18 Patient: TIO HAND Time Seen: 19:30; initial patient contact, initial documentation, patient care assumed. Arrived- By private vehicle. Historian- patient. HISTORY OF PRESENT ILLNESS Chief Complaint: BACK PAIN. It is described as being severe and in the area of the left side of the mid-thoracic spine, right side of the mid-thoracic spine, left side of the lower thoracic spine and right side of the lower thoracic spine. It is described as radiating to the right shoulder and to the left shoulder. The quality is noted to be "pain". Modifying factors. Not worsened by anything. Not relieved by anything. Onset- about 3 days ago and it is still present. It was abrupt in onset and has been intermittent and waxing/waning. No bladder dysfunction, bowel dysfunction, sensory loss or motor loss. Patient denies an injury but injury to the head or chest. No other injury. Similar symptoms previously: None. Recent medical care: Not recently seen/assessed. REVIEW OF SYSTEMS No fever, difficulty breathing, chest pain, abdominal pain or vomiting. No diarrhea, difficulty with urination, hematuria or vaginal discharge. [facility], no issues with [facility], last period 08/16. All systems otherwise negative, except as recorded above. PAST HISTORY See nurses notes. PROBLEMS: Pelvic Inflammatory Disease. Frequent UTI's . Migraine Headache. PTSD. --19:24 Mirtha Rubio. ADDITIONAL SURGERIES: Appendectomy. Cholecystectomy. Knee Surgery. --19:24 Mirtha Rubio. SOCIAL HISTORY Never smoker. Occasional alcohol use. No drug use. No recent travel. Is a local resident. FAMILY HISTORY Negative. ADDITIONAL NOTES The nursing notes have been reviewed with agreement regarding the chief complaint, HPI, ROS, PMH and patient medications and allergies. PHYSICAL EXAM Vital Signs: 09/15/2016 19:22 BP: 124/71. HR: 90. RR: 20. O2 saturation: 100%. Temp: 98.2 F. Pain level now: 11/14. Have been reviewed as normal and appear to be correct. Appearance: Alert. No acute distress. HEENT: Normal external inspection. Eyes: Pupils equal, round and reactive to light. Neck: Normal inspection. Neck nontender. Painless ROM. CVS: Normal heart rate and rhythm. Heart sounds normal. Pulses normal. Respiratory: No respiratory distress. Breath sounds normal. Chest nontender. Abdomen: Normal inspection. Soft and nontender. Bowel sounds normal. No organomegaly. No mass. Back: Normal inspection. No tenderness. Painless ROM. : Genital inspection normal. Rectal: (no iud strings seen or felt bottle labeler rodrick Shannon at bedside). Skin: Skin warm and dry. Normal skin color. No rash. Normal skin turgor. Extremities: Extremities exhibit normal ROM. Extremities nontender. Neuro: Oriented X 3. Mood/affect normal. No motor deficit. No sensory deficit. LABS, X-RAYS, AND EKG Laboratory Tests: . UA-Culture if indicated: (RADHA: 09/15/2016 20:38) ( [facility]) Final results Test Result Flag Units (Reference) URINE COLOR YELLOW URINE APPEARANCE CLEAR URINE GLUCOSE NEGATIVE (NEGATIVE) URINE BILIRUBIN NEGATIVE (NEGATIVE) URINE KETONE NEGATIVE (NEGATIVE) URINE SPECIFIC GRAVITY 1.025 (1.010-1.030) URINE PH 5.5 (5.0-8.0) URINE PROTEIN NEGATIVE (NEGATIVE) URINE UROBILINOGEN 0.2 EU/dL (0.2-1.0) URINE NITRITE POSITIVE (NEGATIVE) URINE BLOOD 1+ (NEGATIVE) URINE LEUK ESTERASE NEGATIVE (NEGATIVE) URINE RBC 1-3 rbc/hpf (0-1) URINE WBC 1-3 wbc/hpf (0-1) URINE EPITHELIAL CELLS 1-3 EPI/hpf (0-5) URINE BACTERIA MANY (4+) (NONE SEEN) URINE COMMENT CULTURE INDICATED URINE CULTURES ARE SET-UP BASED ON THE FOLLOWING CRITERIA:POSITIVE NITRITEPOSITIVE LEUKOCYTE ESTERASEGREATER THAN 10 WHITE BLOOD CELLSMODERATE (2+) OR GREATER BACTERIA Urine: (RADHA: 09/15/2016 20:38) ( MsgRcvd 09/15/2016 20:52) Final results Test Result Flag Units (Reference) URINE POSITIVE CBC w Diff: (RADHA: 09/15/2016 21:05) ( MsgRcvd 09/15/2016 21:38) Final results Test Result Flag Units (Reference) WHITE BLOOD COUNT 8.9 K/uL (4.5-11.5) RED BLOOD COUNT 4.36 M/uL (4.00-5.20) HEMOGLOBIN 11.9 L gm/dL (12.0-16.0) HEMATOCRIT 36.6 % (36.0-46.0) MEAN CELL VOLUME 84 fL (80-100) MEAN CORPUSCULAR HGB 27 pg (26-34) MEAN CORPUSCULAR HGB CONC 33 g/dL (31-37) RED CELL DISTRIBUTION WIDTH 15.4 H % (11.6-14.8) PLATELET COUNT 390 K/uL (150-400) NEUTROPHIL % 64.9 % (50-75) LYMPH % 24.3 L % (25-40) MONO % 7.2 % (3-14) EOSINOPHIL % 2.9 % (0-4) BASOPHIL % 0.7 % (0-2) CMP: (RADHA: 09/15/2016 21:05) ( MsgRcvd 09/15/2016 21:45) Final results Test Result Flag Units (Reference) GLUCOSE 90 mg/dL (70-110) BUN 11 mg/dL (7-18) CREATININE 0.9 mg/dL (0.6-1.3) Estimated GFR >60 mL/min Estimated GFR- >60 mL/min Note: Persistent reduction over 3 months in eGFR<60 mL/min/1.73 m2 defines CKD. Patients with eGFR values>=60 mL/min/1.73 m2 may also have CKD if evidence ofpersistent proteinuria. Additional information may be foundat www.kidney.org. SODIUM 143 mmol/L (136-145) POTASSIUM 3.6 mmol/L (3.5-5.1) CHLORIDE 107 mmol/L (98-107) CARBON DIOXIDE 27 mmol/L (21-32) CALCIUM 9.1 mg/dL (8.5-10.1) TOTAL PROTEIN 7.6 g/dL (6.4-8.2) ALBUMIN 3.8 g/dL (3.3-5.0) BILIRUBIN, TOTAL 0.2 mg/dL (0.0-1.0) ALKALINE PHOSPHATASE 63 U/L (46-116) AST (SGOT) 11 L U/L (15-37) ALT (SGPT) 21 U/L (12-78) BETA HCG, QUANTITATIVE 158 mIU/mL REFERENCE RANGE:Adult Males: <2 mIU/mLNon- Females: <6 mIU/mL Females:Approximate Approximate hCGGestational Age Range (mIU/mL) 0-1 week 0-501-2 weeks 40-3002-3 weeks 100-71616-2 weeks 500-21853-6 months 5,000-200,0002-3 months 10,000-100,0002nd trimester 3,000-50,0003rd trimester 1,000-50,000 . Note - Tests: (US Pelvis no iud too early for , thickened endometrium can't find iud, recommending ap pelvis and possible ct if iud can't be found, ct can be done f/u if not emergent s/s per discussion with Dr Berg). PROGRESS AND PROCEDURES Course of Care: 2099. pt informed with ua results and + hcg, pt surprised because of her iud placement, more orders placed for blood work and us, pelvic exam done with bottle labeler nurse Mirtha, exam normal 2219. US in progress 2314. had long discussion with pt re US results, more testing needs done to search for IUD, xray, possible ct, whether pt wants to continue with or not, future ob care, tx for uti, pt does not want to do any imaging here, she wants to f/u with her dr tomorrow re IUD and issue, agreed to dc, since pt does not show any signs of emergent iud displacement, hemorrhage, ectopic. Patient counseled in person regarding the patient's stable condition, test results and diagnosis. Differential Diagnosis: I considered Musculo-skeletal strain, contusion, retroperitoneal hematoma, disk protrusion, vertebral fracture, facet syndrome, osteoarthritis, ankylosing spondylitis, pyelonephritis, pneumonia and ureterolithiasis as a possible cause of back pain in this patient. This is a partial list of diagnoses considered. Other possible considerations: kidney stone, uti, pyelo, muscle strain. Above considerations are based on history, physical exam, reassessment and laboratory data. Differential diagnosis was discussed with patient. Disposition: Discharged home in good and unchanged condition. Condition: good and stable. CLINICAL IMPRESSION Acute urinary tract infection with cystitis. No pyelonephritis or hematuria. Not associated with indwelling catheter or obstruction. ; positive test in emergency department. INSTRUCTIONS No sexual contact until released. Warnings: GENERAL WARNINGS: Return or contact your physician immediately if your condition worsens or changes unexpectedly, if not improving as expected, or if other problems arise. increased abdominal pain, fever, persistent vomiting, chest pain or vaginal bleeding. Prescription Medications: Zofran 4 mg: Take 1 orally every six hours as needed for nausea/vomiting. Dispense ten (10). No refills. Substitution is permissible. Macrobid 100 mg: Take 1 capsule orally every 12 hours for 7 days. No refills. Substitution is permissible. Follow-up: Follow up with your doctor tomorrow even if well. Call for an appointment. Summary of care provided to patient. Understanding of the discharge instructions verbalized by patient. Follow-up with: Jonas Matos MD, Obstetrics/Gynecology, , [facility], [address] [place] [address] Follow up in about two days as needed. Call for an appointment. Summary of care provided to patient. (Electronically signed by Kimi Crocker A.R.N.P. 09/16/2016 13:03)
--- NOTE | 2016-09-16 00:24 | DIAGNOSTIC IMAGING REPORT ---
PROCEDURE: US OB 1ST TRIMESTER W/TRANSVAG INDICATION: POSSIBLE ECTOPIC TECHNIQUE: Youngblood scale, color, and spectral Doppler transabdominal and endovaginal sonographic images of the first trimester gravid uterus were obtained. COMPARISON: 02/22/[address] abdomen pelvis 03/18/2016 FINDINGS: TRANSABDOMINAL SCANS: The anteverted uterus measures about 9.8 cm in length. The endometrium is moderately thickened. No myometrial masses. No IUD is visible. The right ovary is noted anteriorly within the adnexa, measures about 2.1 cm, and has a normal follicular echotexture. The left ovary has a normal transabdominal appearance. No suspicious adnexal mass. Normal maternal kidneys. TRANSVAGINAL SCANS: A few Nabothian cysts are present at the cervix which appears closed. Trace amount of free fluid is seen posteriorly. The uterus is homogeneous without mass. No IUD is visible in the endometrial canal. The endometrium is moderately thickened measuring 19 mm at the fundus. No evidence of fluid collection to suggest early at this point. The left ovary measures 3.3 x 1.65-0.9 cm and has a normal follicular echotexture, arterial, and venous flow. The right ovary was only seen by transabdominal imaging. IMPRESSION: 1. Moderately thickened endometrium, S at the limits of normal. This is likely sign of very early . No intrauterine gestational fluid collection. An ectopic cannot be excluded at this early stage. Correlation with Beta hCG levels and follow-up ultrasound to confirm viability in 6-7 weeks is recommended. 2. Copper IUD previously seen is no longer present within the uterus. Clinical correlation recommended. AP pelvis radiograph to exclude extrauterine migration is recommended. 3. Discussed with Kimi Crocker in the emergency room.
--- NOTE | 2016-09-16 13:03 | ED MED RECONCILIATION SUMMARY ---
Patient: TIO HAND Medication Reconciliation Report [facility] VisitID: [id number] [address] [place] [address] 36y, F Registration Date/Time: 09/15/2016 Weight: 86.1 kg Height/Length: 65 in. BMI: 31.6 ALLERGIES: Hydrocodone The patient's Home Medications are listed below: THE FOLLOWING MEDICATIONS NEED TO BE RECONCILED: Wellbutrin Oral, daily The source(s) of the original Home Medication information: patient The following Medications were given to the patient in the Emergency Department: Toradol [IM] IM 60 mg, administered: 09/15/2016 7:39:00 PM The following Medications were prescribed to the patient: Zofran 4 mg: Take 1 orally every six hours as needed for nausea/vomiting. Dispense ten (10). No refills. Substitution is permissible. -- Kimi Crocker A.R.N.P. Macrobid 100 mg: Take 1 capsule orally every 12 hours for 7 days. No refills. Substitution is permissible. -- Kimi Crocker A.R.N.P.
--- NOTE | 2016-09-16 13:03 | ED DISCHARGE INSTRUCTIONS ---
Patient: TIO HAND General Instructions [facility] VisitID: [id number] [address] [place] [address] 36y, F Registration Date/Time: 09/15/2016 Acute urinary tract infection with cystitis. No pyelonephritis or hematuria. Not associated with indwelling catheter or obstruction. ; positive test in emergency department. INSTRUCTIONS No sexual contact until released. Warnings: GENERAL WARNINGS: Return or contact your physician immediately if your condition worsens or changes unexpectedly, if not improving as expected, or if other problems arise. increased abdominal pain, fever, persistent vomiting, chest pain or vaginal bleeding. Prescription Medications: Zofran 4 mg: Take 1 orally every six hours as needed for nausea/vomiting. Dispense ten (10). No refills. Substitution is permissible. Macrobid 100 mg: Take 1 capsule orally every 12 hours for 7 days. No refills. Substitution is permissible. Follow-up: Follow up with your doctor tomorrow even if well. Call for an appointment. Summary of care provided to patient. Understanding of the discharge instructions verbalized by patient. Follow-up with: Jonas Matos MD, Obstetrics/Gynecology, , [facility], [address] [place] [address] Follow up in about two days as needed. Call for an appointment. Summary of care provided to patient. ADDITIONAL INFORMATION Your exam today shows that you are . During , it is normal to develop tender swollen breasts, frequent urination and mild vaginal discharge. During the first three months, nausea is common. Guidelines For A Healthy : To ensure that your baby is born healthy there are certain things that you can do: When you feel tired, you should REST. This is especially true in the later months of . Your body needs more FLUIDS than you may be used to: You should drink 8-10 glasses of juice, milk or water. Eat well-balanced MEALS at regular intervals to supply your body with enough protein. You can expect a total weight gain of about 30 pounds during the . Do not try to diet or lose weight while you are . Because of the extra nutritional needs during , take one VITAMIN daily. Do not take any other MEDICINE during your (prescribed or cedm-dag-ehlxnbb) unless your doctor specifically recommends this. Many drugs can have harmful effects on the growing baby. If NAUSEA or VOMITING become a problem, avoid greasy and fried foods. Eat several smaller meals throughout the day rather than three large meals. If you SMOKE, you must stop. The nicotine you breathe in goes right to the baby. Stay away from ALCOHOL, even in moderate amounts. Daily drinking will harm your baby and can cause permanent brain damage. RECREATIONAL DRUGS are harmful, especially cocaine, crack, and heroin. Marijuana should also be avoided. If you were using recreational drugs or prescribed medicine when you found out that you were , talk to your doctor about possible effects on the fetus. Follow Up: Call to arrange for care. This can be provided by your family doctor, an beam racker ( specialist) or a primary care clinic. Get Prompt Medical Attention if any of the following occur: Vaginal bleeding Moderate or severe abdominal or back pain Excessive vomiting, unable to keep any fluids down for six hours Burning with urination Headache, dizziness or rapid weight gain Your exam today shows that you are . During , it is normal to develop tender swollen breasts, frequent urination and mild vaginal discharge. During the first three months, nausea is common. Guidelines For A Healthy : To ensure that your baby is born healthy there are certain things that you can do: When you feel tired, you should REST. This is especially true in the later months of . Your body needs more FLUIDS than you may be used to: You should drink 8-10 glasses of juice, milk or water. Eat well-balanced MEALS at regular intervals to supply your body with enough protein. You can expect a total weight gain of about 30 pounds during the . Do not try to diet or lose weight while you are . Because of the extra nutritional needs during , take one VITAMIN daily. Do not take any other MEDICINE during your (prescribed or lozo-swy-gfcngxr) unless your doctor specifically recommends this. Many drugs can have harmful effects on the growing baby. If NAUSEA or VOMITING become a problem, avoid greasy and fried foods. Eat several smaller meals throughout the day rather than three large meals. If you SMOKE, you must stop. The nicotine you breathe in goes right to the baby. Stay away from ALCOHOL, even in moderate amounts. Daily drinking will harm your baby and can cause permanent brain damage. RECREATIONAL DRUGS are harmful, especially cocaine, crack, and heroin. Marijuana should also be avoided. If you were using recreational drugs or prescribed medicine when you found out that you were , talk to your doctor about possible effects on the fetus. Follow Up: Call to arrange for care. This can be provided by your family doctor, an beam racker ( specialist) or a primary care clinic. Get Prompt Medical Attention if any of the following occur: Vaginal bleeding Moderate or severe abdominal or back pain Excessive vomiting, unable to keep any fluids down for six hours Burning with urination Headache, dizziness or rapid weight gain Bladder Infection,Female (Adult) A bladder infection ("cystitis" or "UTI") usually causes a constant urge to urinate and a burning when passing urine. Urine may be cloudy, smelly or dark. There may be pain in the lower abdomen. A bladder infection occurs when bacteria from the vaginal area enter the bladder opening (urethra). This can occur from sexual intercourse, wearing tight clothing, dehydration and other factors. Home Care: Drink lots of fluids (at least 6-8 glasses a day, unless you must restrict fluids for other medical reasons). This will force the medicine into your urinary system and flush the bacteria out of your body. Avoid sexual intercourse until your symptoms are gone. Avoid caffeine, alcohol and spicy foods. These can irritate the bladder. A bladder infection is treated with antibiotics. You may also be given Pyridium (generic = phenazopyridine) to reduce the burning sensation. This medicine will cause your urine to become a bright orange color. The orange urine may stain clothing. You may wear a pad or panty-liner to protect clothing. Preventing Future Infections: Always wipe from front to back after a bowel movement. Keep the genital area clean and dry. Drink plenty of fluids each day to avoid dehydration. Both sexual partners should wash before intercourse. Urinate right after intercourse to flush out the bladder. Wear cotton underwear and cotton-lined panty hose; avoid tight-fitting pants. If you are on control pills and are having frequent bladder infections, discuss with your doctor. Follow Up: Return to this facility or see your doctor if ALL symptoms are not gone after three days of treatment. Get Prompt Medical Attention if any of the following occur: Fever of 100.4F (38C) or higher, or as directed by your healthcare provider No improvement by the third day of treatment Increasing back or abdominal pain Repeated vomiting; unable to keep medicine down Weakness, dizziness or fainting Vaginal discharge Pain, redness or swelling in the labia (outer vaginal area) Ondansetron Oral disintegrating tablet What is this medicine? ONDANSETRON (on ELEAZAR se leoncio) is used to treat nausea and vomiting caused by chemotherapy. It is also used to prevent or treat nausea and vomiting after surgery. How should I use this medicine? These tablets are made to dissolve in the mouth. Do not try to push the tablet through the foil backing. With dry hands, peel away the foil backing and gently remove the tablet. Place the tablet in the mouth and allow it to dissolve, then swallow. While you may take these tablets with water, it is not necessary to do so. Talk to your engagement manager regarding the use of this medicine in children. Special care may be needed. What side effects may I notice from receiving this medicine? Side effects that you should report to your doctor or health personal care attendant as soon as possible: allergic reactions like skin rash, itching or hives, swelling of the face, lips, or tongue breathing problems dizziness fast or irregular heartbeat feeling faint or lightheaded, falls fever and chills swelling of the hands and feet tightness in the chest Side effects that usually do not require medical attention (report to your doctor or health personal care attendant if they continue or are bothersome): constipation or diarrhea headache What may interact with this medicine? Do not take this medicine with any of the following medications: -apomorphine -cisapride -dofetilide -dronedarone -pimozide -thioridazine -ziprasidone This medicine may also interact with the following medications: -carbamazepine -phenytoin -rifampicin -tramadol -other medicines that prolong the QT interval (cause an abnormal heart rhythm) What if I miss a dose? If you miss a dose, take it as soon as you can. If it is almost time for your next dose, take only that dose. Do not take double or extra doses. Where should I keep my medicine? Keep out of the reach of children. Store between 2 and 30 degrees C (36 and 86 degrees F). Throw away any unused medicine after the expiration date. What should I tell my health care provider before I take this medicine? They need to know if you have any of these conditions: heart disease history of irregular heartbeat liver disease low levels of magnesium or potassium in the blood an unusual or allergic reaction to ondansetron, granisetron, other medicines, foods, dyes, or preservatives or trying to get breast-feeding What should I watch for while using this medicine? Check with your doctor or health personal care attendant as soon as you can if you have any sign of an allergic reaction. Nitrofurantoin, Nitrofurantoin, Macrocrystalline Oral capsule What is this medicine? NITROFURANTOIN (marthanaomi lomeli AN toyn) is an antibiotic. It is used to treat urinary tract infections. How should I use this medicine? Take this medicine by mouth with a glass of water. Follow the directions on the prescription label. Take this medicine with food or milk. Take your doses at regular intervals. Do not take your medicine more often than directed. Do not stop taking except on your doctor's advice. Talk to your engagement manager regarding the use of this medicine in children. While this drug may be prescribed for selected conditions, precautions do apply. What side effects may I notice from receiving this medicine? Side effects that you should report to your doctor or health personal care attendant as soon as possible: allergic reactions like skin rash or hives, swelling of the face, lips, or tongue chest pain cough difficulty breathing dizziness, drowsiness fever or infection joint aches or pains pale or blue-tinted skin redness, blistering, peeling or loosening of the skin, including inside the mouth tingling, burning, pain, or numbness in hands or feet unusual bleeding or bruising unusually weak or tired yellowing of eyes or skin Side effects that usually do not require medical attention (report to your doctor or health personal care attendant if they continue or are bothersome): dark urine diarrhea headache loss of appetite nausea or vomiting temporary hair loss What may interact with this medicine? antacids containing magnesium trisilicate probenecid quinolone antibiotics like ciprofloxacin, lomefloxacin, norfloxacin and ofloxacin sulfinpyrazone What if I miss a dose? If you miss a dose, take it as soon as you can. If it is almost time for your next dose, take only that dose. Do not take double or extra doses. Where should I keep my medicine? Keep out of the reach of children. Store at room temperature between 15 and 30 degrees C (59 and 86 degrees F). Protect from light. Throw away any unused medicine after the expiration date. What should I tell my health care provider before I take this medicine? They need to know if you have any of these conditions: anemia diabetes sfkbbqb-[id number]-ldbaxtsqh dehydrogenase deficiency kidney disease liver disease lung disease other chronic illness an unusual or allergic reaction to nitrofurantoin, other antibiotics, other medicines, foods, dyes or preservatives or trying to get breast-feeding What should I watch for while using this medicine? Tell your doctor or health personal care attendant if your symptoms do not improve or if you get new symptoms. Drink several glasses of water a day. If you are taking this medicine for a long time, visit your doctor for regular checks on your progress. If you are diabetic, you may get a false positive result for sugar in your urine with certain brands of urine tests. Check with your doctor. You have been given the following additional information: , New Dx , New Dx Bladder Infection, Female (Adult) Ondansetron Oral disintegrating tablet Nitrofurantoin, Nitrofurantoin, Macrocrystalline Oral capsule (Electronically signed by Kimi Crocker A.R.N.P. 09/16/2016 13:03)
--- NOTE | 2016-09-16 13:03 | ED MAR SUMMARY ---
..... Medication Administration Record [facility] [address] [place] [place] [address] Patient: TIO HAND Visit ID: [id number] 36y, F Weight: 86.1 kg Height/Length: 65 in BMI: 31.6 ALLERGIES: Hydrocodone Given 19:39 09/15/2016 Mirtha Rubio, Medication Administered: TORADOL [IM] (KETOROLAC TROMETHAMINE), Dose: 60 mg IM. Medication Ordered: Toradol IM 60 mg (NOW).
--- NOTE | 2016-09-16 13:03 | ED DISCHARGE INSTRUCTIONS ---
Patient: TIO HAND General Instructions [facility] VisitID: [id number] [address] [place] [address] 36y, F Registration Date/Time: 09/15/2016 Acute urinary tract infection with cystitis. No pyelonephritis or hematuria. Not associated with indwelling catheter or obstruction. ; positive test in emergency department. INSTRUCTIONS No sexual contact until released. Warnings: GENERAL WARNINGS: Return or contact your physician immediately if your condition worsens or changes unexpectedly, if not improving as expected, or if other problems arise. increased abdominal pain, fever, persistent vomiting, chest pain or vaginal bleeding. Prescription Medications: Zofran 4 mg: Take 1 orally every six hours as needed for nausea/vomiting. Dispense ten (10). No refills. Substitution is permissible. Macrobid 100 mg: Take 1 capsule orally every 12 hours for 7 days. No refills. Substitution is permissible. Follow-up: Follow up with your doctor tomorrow even if well. Call for an appointment. Summary of care provided to patient. Understanding of the discharge instructions verbalized by patient. Follow-up with: Jonas Matos MD, Obstetrics/Gynecology, , [facility], [address] [place] [address] Follow up in about two days as needed. Call for an appointment. Summary of care provided to patient. ADDITIONAL INFORMATION Your exam today shows that you are . During , it is normal to develop tender swollen breasts, frequent urination and mild vaginal discharge. During the first three months, nausea is common. Guidelines For A Healthy : To ensure that your baby is born healthy there are certain things that you can do: When you feel tired, you should REST. This is especially true in the later months of . Your body needs more FLUIDS than you may be used to: You should drink 8-10 glasses of juice, milk or water. Eat well-balanced MEALS at regular intervals to supply your body with enough protein. You can expect a total weight gain of about 30 pounds during the . Do not try to diet or lose weight while you are . Because of the extra nutritional needs during , take one VITAMIN daily. Do not take any other MEDICINE during your (prescribed or [id number]) unless your doctor specifically recommends this. Many drugs can have harmful effects on the growing baby. If NAUSEA or VOMITING become a problem, avoid greasy and fried foods. Eat several smaller meals throughout the day rather than three large meals. If you SMOKE, you must stop. The nicotine you breathe in goes right to the baby. Stay away from ALCOHOL, even in moderate amounts. Daily drinking will harm your baby and can cause permanent brain damage. RECREATIONAL DRUGS are harmful, especially cocaine, crack, and heroin. Marijuana should also be avoided. If you were using recreational drugs or prescribed medicine when you found out that you were , talk to your doctor about possible effects on the fetus. Follow Up: Call to arrange for care. This can be provided by your family doctor, an audio visual engineer ( specialist) or a primary care clinic. Get Prompt Medical Attention if any of the following occur: Vaginal bleeding Moderate or severe abdominal or back pain Excessive vomiting, unable to keep any fluids down for six hours Burning with urination Headache, dizziness or rapid weight gain Your exam today shows that you are . During , it is normal to develop tender swollen breasts, frequent urination and mild vaginal discharge. During the first three months, nausea is common. Guidelines For A Healthy : To ensure that your baby is born healthy there are certain things that you can do: When you feel tired, you should REST. This is especially true in the later months of . Your body needs more FLUIDS than you may be used to: You should drink 8-10 glasses of juice, milk or water. Eat well-balanced MEALS at regular intervals to supply your body with enough protein. You can expect a total weight gain of about 30 pounds during the . Do not try to diet or lose weight while you are . Because of the extra nutritional needs during , take one VITAMIN daily. Do not take any other MEDICINE during your (prescribed or zyte-bln-bardtmz) unless your doctor specifically recommends this. Many drugs can have harmful effects on the growing baby. If NAUSEA or VOMITING become a problem, avoid greasy and fried foods. Eat several smaller meals throughout the day rather than three large meals. If you SMOKE, you must stop. The nicotine you breathe in goes right to the baby. Stay away from ALCOHOL, even in moderate amounts. Daily drinking will harm your baby and can cause permanent brain damage. RECREATIONAL DRUGS are harmful, especially cocaine, crack, and heroin. Marijuana should also be avoided. If you were using recreational drugs or prescribed medicine when you found out that you were , talk to your doctor about possible effects on the fetus. Follow Up: Call to arrange for care. This can be provided by your family doctor, an audio visual engineer ( specialist) or a primary care clinic. Get Prompt Medical Attention if any of the following occur: Vaginal bleeding Moderate or severe abdominal or back pain Excessive vomiting, unable to keep any fluids down for six hours Burning with urination Headache, dizziness or rapid weight gain Bladder Infection,Female (Adult) A bladder infection ("cystitis" or "UTI") usually causes a constant urge to urinate and a burning when passing urine. Urine may be cloudy, smelly or dark. There may be pain in the lower abdomen. A bladder infection occurs when bacteria from the vaginal area enter the bladder opening (urethra). This can occur from sexual intercourse, wearing tight clothing, dehydration and other factors. Home Care: Drink lots of fluids (at least 6-8 glasses a day, unless you must restrict fluids for other medical reasons). This will force the medicine into your urinary system and flush the bacteria out of your body. Avoid sexual intercourse until your symptoms are gone. Avoid caffeine, alcohol and spicy foods. These can irritate the bladder. A bladder infection is treated with antibiotics. You may also be given Pyridium (generic = phenazopyridine) to reduce the burning sensation. This medicine will cause your urine to become a bright orange color. The orange urine may stain clothing. You may wear a pad or panty-liner to protect clothing. Preventing Future Infections: Always wipe from front to back after a bowel movement. Keep the genital area clean and dry. Drink plenty of fluids each day to avoid dehydration. Both sexual partners should wash before intercourse. Urinate right after intercourse to flush out the bladder. Wear cotton underwear and cotton-lined panty hose; avoid tight-fitting pants. If you are on control pills and are having frequent bladder infections, discuss with your doctor. Follow Up: Return to this facility or see your doctor if ALL symptoms are not gone after three days of treatment. Get Prompt Medical Attention if any of the following occur: Fever of 100.4F (38C) or higher, or as directed by your healthcare provider No improvement by the third day of treatment Increasing back or abdominal pain Repeated vomiting; unable to keep medicine down Weakness, dizziness or fainting Vaginal discharge Pain, redness or swelling in the labia (outer vaginal area) Ondansetron Oral disintegrating tablet What is this medicine? ONDANSETRON (on ELEAZAR se leoncio) is used to treat nausea and vomiting caused by chemotherapy. It is also used to prevent or treat nausea and vomiting after surgery. How should I use this medicine? These tablets are made to dissolve in the mouth. Do not try to push the tablet through the foil backing. With dry hands, peel away the foil backing and gently remove the tablet. Place the tablet in the mouth and allow it to dissolve, then swallow. While you may take these tablets with water, it is not necessary to do so. Talk to your technical manager chemical plant regarding the use of this medicine in children. Special care may be needed. What side effects may I notice from receiving this medicine? Side effects that you should report to your doctor or health residential care facility manager as soon as possible: allergic reactions like skin rash, itching or hives, swelling of the face, lips, or tongue breathing problems dizziness fast or irregular heartbeat feeling faint or lightheaded, falls fever and chills swelling of the hands and feet tightness in the chest Side effects that usually do not require medical attention (report to your doctor or health residential care facility manager if they continue or are bothersome): constipation or diarrhea headache What may interact with this medicine? Do not take this medicine with any of the following medications: -apomorphine -cisapride -dofetilide -dronedarone -pimozide -thioridazine -ziprasidone This medicine may also interact with the following medications: -carbamazepine -phenytoin -rifampicin -tramadol -other medicines that prolong the QT interval (cause an abnormal heart rhythm) What if I miss a dose? If you miss a dose, take it as soon as you can. If it is almost time for your next dose, take only that dose. Do not take double or extra doses. Where should I keep my medicine? Keep out of the reach of children. Store between 2 and 30 degrees C (36 and 86 degrees F). Throw away any unused medicine after the expiration date. What should I tell my health care provider before I take this medicine? They need to know if you have any of these conditions: heart disease history of irregular heartbeat liver disease low levels of magnesium or potassium in the blood an unusual or allergic reaction to ondansetron, granisetron, other medicines, foods, dyes, or preservatives or trying to get breast-feeding What should I watch for while using this medicine? Check with your doctor or health residential care facility manager as soon as you can if you have any sign of an allergic reaction. Nitrofurantoin, Nitrofurantoin, Macrocrystalline Oral capsule What is this medicine? NITROFURANTOIN (marthanaomi lomeli AN toyn) is an antibiotic. It is used to treat urinary tract infections. How should I use this medicine? Take this medicine by mouth with a glass of water. Follow the directions on the prescription label. Take this medicine with food or milk. Take your doses at regular intervals. Do not take your medicine more often than directed. Do not stop taking except on your doctor's advice. Talk to your technical manager chemical plant regarding the use of this medicine in children. While this drug may be prescribed for selected conditions, precautions do apply. What side effects may I notice from receiving this medicine? Side effects that you should report to your doctor or health residential care facility manager as soon as possible: allergic reactions like skin rash or hives, swelling of the face, lips, or tongue chest pain cough difficulty breathing dizziness, drowsiness fever or infection joint aches or pains pale or blue-tinted skin redness, blistering, peeling or loosening of the skin, including inside the mouth tingling, burning, pain, or numbness in hands or feet unusual bleeding or bruising unusually weak or tired yellowing of eyes or skin Side effects that usually do not require medical attention (report to your doctor or health residential care facility manager if they continue or are bothersome): dark urine diarrhea headache loss of appetite nausea or vomiting temporary hair loss What may interact with this medicine? antacids containing magnesium trisilicate probenecid quinolone antibiotics like ciprofloxacin, lomefloxacin, norfloxacin and ofloxacin sulfinpyrazone What if I miss a dose? If you miss a dose, take it as soon as you can. If it is almost time for your next dose, take only that dose. Do not take double or extra doses. Where should I keep my medicine? Keep out of the reach of children. Store at room temperature between 15 and 30 degrees C (59 and 86 degrees F). Protect from light. Throw away any unused medicine after the expiration date. What should I tell my health care provider before I take this medicine? They need to know if you have any of these conditions: anemia diabetes uwdmsjf-[id number]-riwinbohs dehydrogenase deficiency kidney disease liver disease lung disease other chronic illness an unusual or allergic reaction to nitrofurantoin, other antibiotics, other medicines, foods, dyes or preservatives or trying to get breast-feeding What should I watch for while using this medicine? Tell your doctor or health residential care facility manager if your symptoms do not improve or if you get new symptoms. Drink several glasses of water a day. If you are taking this medicine for a long time, visit your doctor for regular checks on your progress. If you are diabetic, you may get a false positive result for sugar in your urine with certain brands of urine tests. Check with your doctor. You have been given the following additional information: , New Dx , New Dx Bladder Infection, Female (Adult) Ondansetron Oral disintegrating tablet Nitrofurantoin, Nitrofurantoin, Macrocrystalline Oral capsule (Electronically signed by Kimi Crocker A.R.N.P. 09/16/2016 13:03)
--- NOTE | 2016-09-16 13:03 | ED MAR SUMMARY ---
..... Medication Administration Record [facility] [address] [place] [address] Patient: TIO HAND Visit ID: [id number] 36y, F Weight: 86.1 kg Height/Length: 65 in BMI: 31.6 ALLERGIES: Hydrocodone Given 19:39 09/15/2016 Mirtha Rubio, Medication Administered: TORADOL [IM] (KETOROLAC TROMETHAMINE), Dose: 60 mg IM. Medication Ordered: Toradol IM 60 mg (NOW).
--- NOTE | 2016-09-16 13:03 | ED MED RECONCILIATION SUMMARY ---
Patient: TIO HAND Medication Reconciliation Report [facility] VisitID: [id number] [address] [place] [address] 36y, F Registration Date/Time: 09/15/2016 Weight: 86.1 kg Height/Length: 65 in. BMI: 31.6 ALLERGIES: Hydrocodone The patient's Home Medications are listed below: THE FOLLOWING MEDICATIONS NEED TO BE RECONCILED: Wellbutrin Oral, daily The source(s) of the original Home Medication information: patient The following Medications were given to the patient in the Emergency Department: Toradol [IM] IM 60 mg, administered: 09/15/2016 7:39:00 PM The following Medications were prescribed to the patient: Zofran 4 mg: Take 1 orally every six hours as needed for nausea/vomiting. Dispense ten (10). No refills. Substitution is permissible. -- Kimi Crocker A.R.N.P. Macrobid 100 mg: Take 1 capsule orally every 12 hours for 7 days. No refills. Substitution is permissible. -- Kimi Crocker A.R.N.P.
== END 2016-09-15 23:25 | disposition home or self-care (01) ==
LOC: ED SRH 19:14
DX: O23.11 Infections of bladder in pregnancy, first trimester (principal); Z32.01 Encounter for pregnancy test, result positive; Z3A.00 Weeks of gestation of pregnancy not specified
CPT/HCPCS: 90004; 90100; 90148; 90197; 90469; 93070; 95059

== ENCOUNTER 2016-10-25 19:45 | Emergency (ER) | payer OTHER ==
--- NOTE | 2016-10-25 23:18 | ED CLINICAL REPORT ---
Clinical Report - Physicians/Mid Levels [facility] [address] [place] [address] 10/25/2016 19:45 Patient: TIO HAND Time Seen: 21:28. Arrived- By private vehicle. Historian- patient. HISTORY OF PRESENT ILLNESS Chief Complaint: BACK PAIN. It is described as being moderate in degree and in the area of the right flank and radiating to the right pelvis and to the left pelvis. The quality is noted to be "pain". Onset- about 3 days ago and it is still present. It was abrupt in onset and has been constant. Modifying factors. Not worsened by anything. Not relieved by anything. No bladder dysfunction, bowel dysfunction, sensory loss or motor loss. Patient denies an injury but injury to the head or neck. No other injury. Similar symptoms previously: Occasionally, milder. ( when she had uti). Recent medical care: Not recently seen/assessed. REVIEW OF SYSTEMS No fever, difficulty with urination, urinary frequency, hematuria or vaginal discharge. No irregular periods, difficulty breathing, chest pain, abdominal pain or vomiting. No diarrhea. about 2.5 mos , no care, has appt with ob on 11/10. All systems otherwise negative, except as recorded above. PAST HISTORY See nurses notes. PROBLEMS: UTI - Urinary Tract Infection. Lice. Pyelonephritis. Pelvic Inflammatory Disease. Frequent UTI's . Migraine Headache. PTSD. --20:30 Bertha Stein R.N. UTI - Urinary Tract Infection [RuleOut]. Pelvic Inflammatory Disease [RuleOut]. Pelvic Pain [RuleOut]. --20:30 Bertha Stein R.N. ADDITIONAL SURGERIES: Appendectomy. Cholecystectomy. Knee Surgery. --20:30 Bertha Stein R.N. SOCIAL HISTORY Never smoker. No alcohol use or drug use. No recent travel. Is a local resident. FAMILY HISTORY Negative. ADDITIONAL NOTES The nursing notes have been reviewed with agreement regarding the chief complaint, HPI, ROS, PMH and patient medications and allergies. PHYSICAL EXAM Vital Signs: 10/25/2016 20:24 BP: 106/71. HR: 72. RR: 18. O2 saturation: 100%. Temp: 98.7 F. Pain level now: 10/15. Have been reviewed as normal and appear to be correct. Appearance: Alert. No acute distress. HEENT: Normal external inspection. Eyes: Pupils equal, round and reactive to light. Neck: Normal inspection. Neck nontender. Painless ROM. CVS: Heart sounds normal. Pulses normal. Respiratory: No respiratory distress. Breath sounds normal. Abdomen: No visible injury. Soft and nontender. Bowel sounds normal. No organomegaly. No mass. Back: Abnormal inspection. Painless ROM. Back tenderness present. Mild CVA tenderness on the right. No muscle spasm in the back, vertebral point tenderness, soft tissue tenderness or limitation in ROM. : Normal external exam. Speculum exam normal. Bimanual exam normal. Skin: Skin warm and dry. Normal skin color. No rash. Normal skin turgor. Extremities: Extremities exhibit normal ROM. Extremities nontender. Neuro: Oriented X 3. Mood/affect normal. No motor deficit. No sensory deficit. LABS, X-RAYS, AND EKG Laboratory Tests: UA-Culture if indicated: (RADHA: 10/25/2016 21:54) ( MsgRcvd 10/25/2016 22:27) Final results Test Result Flag Units (Reference) URINE COLOR YELLOW URINE APPEARANCE CLEAR URINE GLUCOSE NEGATIVE (NEGATIVE) URINE BILIRUBIN NEGATIVE (NEGATIVE) URINE KETONE NEGATIVE (NEGATIVE) URINE SPECIFIC GRAVITY >= 1.030 (1.010-1.030) URINE PH 5.5 (5.0-8.0) URINE PROTEIN NEGATIVE (NEGATIVE) URINE UROBILINOGEN 0.2 EU/dL (0.2-1.0) URINE NITRITE POSITIVE (NEGATIVE) URINE BLOOD 2+ (NEGATIVE) URINE LEUK ESTERASE NEGATIVE (NEGATIVE) URINE RBC 10-25 rbc/hpf (0-1) URINE WBC 5-10 wbc/hpf (0-1) URINE EPITHELIAL CELLS 1-3 EPI/hpf (0-5) URINE BACTERIA MANY (4+) (NONE SEEN) URINE COMMENT CULTURE INDICATED 4+ MUCUSURINE CULTURES ARE SET-UP BASED ON THE FOLLOWING CRITERIA:POSITIVE NITRITEPOSITIVE LEUKOCYTE ESTERASEGREATER THAN 10 WHITE BLOOD CELLSMODERATE (2+) OR GREATER BACTERIA Serum Qualitative: (RADHA: 10/25/2016 22:00) ( [facility] 10/25/2016 22:50) Final results Test Result Flag Units (Reference) , SERUM POSITIVE CBC w Diff: (RADHA: 10/25/2016 22:00) ( [facility] 10/25/2016 22:44) Final results Test Result Flag Units (Reference) WHITE BLOOD COUNT 8.1 K/uL (4.5-11.5) RED BLOOD COUNT 4.41 M/uL (4.00-5.20) HEMOGLOBIN 11.9 L gm/dL (12.0-16.0) HEMATOCRIT 36.7 % (36.0-46.0) MEAN CELL VOLUME 83 fL (80-100) MEAN CORPUSCULAR HGB 27 pg (26-34) MEAN CORPUSCULAR HGB CONC 33 g/dL (31-37) RED CELL DISTRIBUTION WIDTH 15.4 H % (11.6-14.8) PLATELET COUNT 337 K/uL (150-400) NEUTROPHIL % 71.9 % (50-75) LYMPH % 20.4 L % (25-40) MONO % 4.9 % (3-14) EOSINOPHIL % 2.2 % (0-4) BASOPHIL % 0.6 % (0-2) CMP: (RADHA: 10/25/2016 22:00) ( [facility] 10/25/2016 22:34) Final results Test Result Flag Units (Reference) GLUCOSE 96 mg/dL (70-110) BUN 8 mg/dL (7-18) CREATININE 0.8 mg/dL (0.6-1.3) Estimated GFR >60 mL/min Estimated GFR- >60 mL/min Note: Persistent reduction over 3 months in eGFR<60 mL/min/1.73 m2 defines CKD. Patients with eGFR values>=60 mL/min/1.73 m2 may also have CKD if evidence ofpersistent proteinuria. Additional information may be foundat www.kidney.org. SODIUM 137 mmol/L (136-145) POTASSIUM 3.6 mmol/L (3.5-5.1) CHLORIDE 102 mmol/L (98-107) CARBON DIOXIDE 25 mmol/L (21-32) CALCIUM 9.0 mg/dL (8.5-10.1) TOTAL PROTEIN 7.5 g/dL (6.4-8.2) ALBUMIN 3.5 g/dL (3.3-5.0) BILIRUBIN, TOTAL 0.2 mg/dL (0.0-1.0) ALKALINE PHOSPHATASE 56 U/L (46-116) AST (SGOT) 14 L U/L (15-37) ALT (SGPT) 19 U/L (12-78) . PROGRESS AND PROCEDURES Course of Care: 10/25/2016 22:03 BP: 104/57. HR: 73. RR: 16. O2 saturation: 100%. Vital Signs: have been reviewed as normal and appear to be correct. Patient counseled in person regarding the patient's stable condition, test results and diagnosis. 23:13. Differential Diagnosis: I considered Musculo-skeletal strain, contusion, retroperitoneal hematoma, disk protrusion, vertebral fracture, facet syndrome, sciatica, osteoarthritis, lumbar spondylosis, spinal stenosis, ankylosing spondylitis, sacroiliac joint inflammation, endometriosis, pyelonephritis and ureterolithiasis as a possible cause of back pain in this patient. This is a partial list of diagnoses considered. (uti, pyelo, ectopic, std, bv, yeast). Above considerations are based on history, physical exam, reassessment and laboratory data. Differential diagnosis was discussed with patient. Disposition: Discharged home in good and improved condition (23:18). Condition: good and stable. CLINICAL IMPRESSION Acute urinary tract infection with cystitis. No pyelonephritis or hematuria. Not associated with indwelling catheter or obstruction. INSTRUCTIONS Drink plenty of fluids. Warnings: GENERAL WARNINGS: Return or contact your physician immediately if your condition worsens or changes unexpectedly, if not improving as expected, or if other problems arise. SPECIFICALLY, return if you develop incontinence of urine (loss of bladder control). symptoms worsen. Prescription Medications: Macrobid 100 mg: Take 1 capsule orally every 12 hours for 7 days. No refills. Substitution is permissible. Follow-up: Follow up with your doctor in about three days even if well. Call for an appointment. Summary of care provided to patient. Understanding of the discharge instructions verbalized by patient. (Electronically signed by Kimi Crocker A.R.N.P. 10/25/2016 23:35)
--- NOTE | 2016-10-25 23:18 | ED ORDER SUMMARY ---
..... Patient: TIO HAND OrderSheet [facility] VisitID: [id number] [place] [address] 36y, F Registration Date/Time: 10/25/2016 ORDER SHEET Weight: 86.1 kg (stated) Allergies: Vicodin GENERAL ORDERS: UA-Culture if indicated Urgent (21:52 10/25/2016 AMcQuoid ER Tech1 verbal order read back to HBivens A.R.N.P.) (Ack 21:53 AMcQuoid ER Tech1) (21:53 AMcQuoid ER Tech1) CBC w Diff Urgent (21:53 10/25/2016 HBivens A.R.N.P.) (Ack 21:55 AMcQuoid ER Tech1) (22:56 CBradburn R.N.) CMP Urgent (21:53 10/25/2016 HBivens A.R.N.P.) (Ack 21:55 AMcQuoid ER Tech1) (22:56 CBradburn R.N.) Serum Qualitative Urgent (21:53 10/25/2016 HBivens A.R.N.P.) (Ack 21:55 AMcQuoid ER Tech1) (22:56 CBradburn R.N.) Pelvic Exam Setup (21:53 10/25/2016 HBivens A.R.N.P.) (Ack 21:55 AMcQuoid ER Tech1) (21:56 RKaruga) MEDICATION ORDERS: IV FLUIDS: ORDER SHEET NOTES: [Electronically signed by Bertha Stein R.N. (23:33 10/25/2016)] [Electronically signed by Kimi CrockerR.N.POniel (23:35 10/25/2016)] [Electronically locked/signed by Bertha Stein R.N. (23:33 10/25/2016)]
--- NOTE | 2016-10-25 23:18 | ED NURSING NOTES ---
Clinical Report - Nurses [facility] [address] [place] [address] 10/25/2016 19:45 Patient: TIO HAND TRIAGE Triage time 20:24. Acuity: LEVEL 4. Chief Complaint: RIGHT UPPER EXTREMITY PAIN. --20:30 Bertha Stein R.N. 20:24 10/25/16. BP: 106/71 taken on the left arm, while sitting. HR: 72 (regular and normal rate). RR: 18. O2 saturation: 100%. Temp: 98.7 F (oral). Pain level now: 10/15. --20:30 Bertha Stein R.N. Weight: 86.1 kg stated. Height/Length: 65 inches Per Patient. BMI: 31.6. --20:26 Bertha Stein R.N. Medications None. --20:29 Bertha Stein R.N. Allergies Vicodin. --20:30 Bertha Stein R.N. History Arrived by private vehicle. Historian: patient. Accompanied by friend. Primary physician (nyasia). This occurred (3 days ago). ( right middle back pain radiates up to right shoulder, 2.5 months ). PAST MEDICAL HX: Tetanus status: up-to-date. Immunizations: up-to-date. Last normal menstrual period- August 16 2016. Confirmed : August 16, 2016. In 1st trimester. confirmed with urine test. G 8. P 6. SOCIAL HX: Never smoker. No alcohol use or drug use. No infectious disease exposure. ABUSE ASSESSMENT: No report of abuse. SELF HARM ASSESSMENT: A self harm assessment was performed. The patient answered "no" to the question "Have you recently felt down, depressed, or hopeless?", "Have you noticed less interest or pleasure in doing things?", "Do you have thoughts of harming or killing yourself?", "Are you here because you tried to hurt yourself?", "Have you ever tried to hurt yourself before today?", "Have you recently had thoughts about harming or killing others?" and "Do you have any dangerous items in your possession?". FALL RISK ASSESSMENT: Fall risk assessment completed. No fall risk identified. NUTRITIONAL RISK ASSESSMENT: The nutritional risk assessment revealed no deficiencies. FUNCTIONAL ASSESSMENT: Functional assessment: no impairments noted. LEARNING NEEDS ASSESSMENT: The learning needs assessment revealed no barriers. SKIN INTEGRITY ASSESSMENT: Skin integrity risk assessment completed. No skin integrity risk identified. --20:30 Bertha Stein R.N. PROBLEMS: UTI - Urinary Tract Infection. Lice. Pyelonephritis. Pelvic Inflammatory Disease. Frequent UTI's . Migraine Headache. PTSD. --20:30 Bertha Stein R.N. UTI - Urinary Tract Infection [RuleOut]. Pelvic Inflammatory Disease [RuleOut]. Pelvic Pain [RuleOut]. --20:30 Bertha Stein R.N. ADDITIONAL SURGERIES: Appendectomy. Cholecystectomy. Knee Surgery. --20:30 Bertha Stein R.N. Interventions ID band on patient. --20:30 Bertha Stein R.N. To treatment room. --21:22 Gael Vila R.N. PHYSICAL ASSESSMENT Ambulatory to room. GENERAL / NEURO / PSYCH: Oriented X 4. Alert. Appears in no acute distress. Does not appear in pain or distress or anxious. SKIN: Skin is warm and dry. --21:23 Gael Vila R.N. RESPIRATORY: ( C/O pelvic tenderness during urination). GI / : CVA tenderness on the right. --21:33 Gael Vila R.N. NURSING PROGRESS NOTES ( brought to treatment room. Attempting to assess patient. Patient carrying on conversation on cell phone. Patient not stopping conversation on cell phone despite this RN attempting to assess her and get further vitals. Pt left in room to finish conversation. She is alert and oriented and conversing extensively. No apparent distress, no s/sx pain.). --21:22 Gael Vila R.N. 21:53. Checked patient name and birthdate urine collected; sample sent to lab. Specimen labeled in the presence of the patient. --21:53 McQuoid, Linsey, ER Tech1 The patient reports no complaints and she is calm and resting quietly. --22:02 Gael Vila R.N. 22:03 10/25/16. BP: 104/57. HR: 73. RR: 16. O2 saturation: 100% on room air. Pain level now /10. --22:05 Gael Vila R.N. PELVIC EXAM: Pelvic exam performed by REGIONAL GUIDE. Assisted by one nurse. Preparation: pelvic tray; patient placed in lithotomy position. Procedure: speculum and bimanual exam. Specimens collected and sent to lab: wet prep. Status post-procedure: she was stable and no complications were noted. Total time of assist / procedure: 15 minutes. --22:28 Manisha Resendez R.N. DISPOSITION / DISCHARGE Departure time: 2327. Condition at departure: improved and stable. No learning barriers present. Discharge instructions provided and reviewed with the patient. Reviewed medication(s) side effects, precautions, dosing and course information. Prescription(s) given to the patient. Reviewed referral to a primary care physician for followup. Patient and spouse verbalized understanding. Written instructions provided in Mongolian. The patient was discharged home and accompanied by spouse. She left the Emergency Department ambulatory and via private vehicle. Spouse driving. --23:33 Bertha Stein R.N. 23:31 10/25/16. BP: deferred due to patient not present. HR: deferred due to patient not present. RR: deferred due to patient not present. O2 saturation: deferred. Temp not taken due to patient not present. Pain level now deferred. Additional comments: pt refused vitals needed to leave. --23:33 Bertha Stein R.N. Locked/Released at 10/25/2016 23:33 by Bertha Stein R.N.
--- NOTE | 2016-10-25 23:18 | ED ORDER SUMMARY ---
..... Patient: TIO HAND OrderSheet [facility] VisitID: [id number] [place] [address] 36y, F Registration Date/Time: 10/25/2016 ORDER SHEET Weight: 86.1 kg (stated) Allergies: Vicodin GENERAL ORDERS: UA-Culture if indicated Urgent (21:52 10/25/2016 AMcQuoid ER Tech1 verbal order read back to HBivens A.R.N.P.) (Ack 21:53 AMcQuoid ER Tech1) (21:53 AMcQuoid ER Tech1) CBC w Diff Urgent (21:53 10/25/2016 HBivens A.R.N.P.) (Ack 21:55 AMcQuoid ER Tech1) (22:56 CBradburn R.N.) CMP Urgent (21:53 10/25/2016 HBivens A.R.N.P.) (Ack 21:55 AMcQuoid ER Tech1) (22:56 CBradburn R.N.) Serum Qualitative Urgent (21:53 10/25/2016 HBivens A.R.N.P.) (Ack 21:55 AMcQuoid ER Tech1) (22:56 CBradburn R.N.) Pelvic Exam Setup (21:53 10/25/2016 HBivens A.R.N.P.) (Ack 21:55 AMcQuoid ER Tech1) (21:56 RKaruga) MEDICATION ORDERS: IV FLUIDS: ORDER SHEET NOTES: [Electronically signed by Bertha Stein R.N. (23:33 10/25/2016)] [Electronically signed by Kimi CrockerR.N.POniel (23:35 10/25/2016)] [Electronically locked/signed by Bertha Stein R.N. (23:33 10/25/2016)]
--- NOTE | 2016-10-25 23:18 | ED NURSING NOTES ---
Clinical Report - Nurses [facility] [address] [place] [address] 10/25/2016 19:45 Patient: TIO HAND TRIAGE Triage time 20:24. Acuity: LEVEL 4. Chief Complaint: RIGHT UPPER EXTREMITY PAIN. --20:30 Bertha Stein R.N. 20:24 10/25/16. BP: 106/71 taken on the left arm, while sitting. HR: 72 (regular and normal rate). RR: 18. O2 saturation: 100%. Temp: 98.7 F (oral). Pain level now: 10/15. --20:30 Bertha Stein R.N. Weight: 86.1 kg stated. Height/Length: 65 inches Per Patient. BMI: 31.6. --20:26 Bertha Stein R.N. Medications None. --20:29 Bertha Stein R.N. Allergies Vicodin. --20:30 Bertha Stein R.N. History Arrived by private vehicle. Historian: patient. Accompanied by friend. Primary physician (nyasai). This occurred (3 days ago). ( right middle back pain radiates up to right shoulder, 2.5 months ). PAST MEDICAL HX: Tetanus status: up-to-date. Immunizations: up-to-date. Last normal menstrual period- August 16 2016. Confirmed : August 16, 2016. In 1st trimester. confirmed with urine test. G 8. P 6. SOCIAL HX: Never smoker. No alcohol use or drug use. No infectious disease exposure. ABUSE ASSESSMENT: No report of abuse. SELF HARM ASSESSMENT: A self harm assessment was performed. The patient answered "no" to the question "Have you recently felt down, depressed, or hopeless?", "Have you noticed less interest or pleasure in doing things?", "Do you have thoughts of harming or killing yourself?", "Are you here because you tried to hurt yourself?", "Have you ever tried to hurt yourself before today?", "Have you recently had thoughts about harming or killing others?" and "Do you have any dangerous items in your possession?". FALL RISK ASSESSMENT: Fall risk assessment completed. No fall risk identified. NUTRITIONAL RISK ASSESSMENT: The nutritional risk assessment revealed no deficiencies. FUNCTIONAL ASSESSMENT: Functional assessment: no impairments noted. LEARNING NEEDS ASSESSMENT: The learning needs assessment revealed no barriers. SKIN INTEGRITY ASSESSMENT: Skin integrity risk assessment completed. No skin integrity risk identified. --20:30 Bertha Stein R.N. PROBLEMS: UTI - Urinary Tract Infection. Lice. Pyelonephritis. Pelvic Inflammatory Disease. Frequent UTI's . Migraine Headache. PTSD. --20:30 Bertha Stein R.N. UTI - Urinary Tract Infection [RuleOut]. Pelvic Inflammatory Disease [RuleOut]. Pelvic Pain [RuleOut]. --20:30 Bertha Stein R.N. ADDITIONAL SURGERIES: Appendectomy. Cholecystectomy. Knee Surgery. --20:30 Bertha Stein R.N. Interventions ID band on patient. --20:30 Bertha Stein R.N. To treatment room. --21:22 Gael Vila R.N. PHYSICAL ASSESSMENT Ambulatory to room. GENERAL / NEURO / PSYCH: Oriented X 4. Alert. Appears in no acute distress. Does not appear in pain or distress or anxious. SKIN: Skin is warm and dry. --21:23 Gael Vila R.N. RESPIRATORY: ( C/O pelvic tenderness during urination). GI / : CVA tenderness on the right. --21:33 Gael Vila R.N. NURSING PROGRESS NOTES ( brought to treatment room. Attempting to assess patient. Patient carrying on conversation on cell phone. Patient not stopping conversation on cell phone despite this RN attempting to assess her and get further vitals. Pt left in room to finish conversation. She is alert and oriented and conversing extensively. No apparent distress, no s/sx pain.). --21:22 Gael Vila R.N. 21:53. Checked patient name and birthdate urine collected; sample sent to lab. Specimen labeled in the presence of the patient. --21:53 McQuoid, Linsey, ER Tech1 The patient reports no complaints and she is calm and resting quietly. --22:02 Gael Vila R.N. 22:03 10/25/16. BP: 104/57. HR: 73. RR: 16. O2 saturation: 100% on room air. Pain level now /10. --22:05 Gael Vila R.N. PELVIC EXAM: Pelvic exam performed by BIG DATA HADOOP DEVELOPER. Assisted by one nurse. Preparation: pelvic tray; patient placed in lithotomy position. Procedure: speculum and bimanual exam. Specimens collected and sent to lab: wet prep. Status post-procedure: she was stable and no complications were noted. Total time of assist / procedure: 15 minutes. --22:28 Manisha Resendez R.N. DISPOSITION / DISCHARGE Departure time: 2327. Condition at departure: improved and stable. No learning barriers present. Discharge instructions provided and reviewed with the patient. Reviewed medication(s) side effects, precautions, dosing and course information. Prescription(s) given to the patient. Reviewed referral to a primary care physician for followup. Patient and spouse verbalized understanding. Written instructions provided in Pashto. The patient was discharged home and accompanied by spouse. She left the Emergency Department ambulatory and via private vehicle. Spouse driving. --23:33 Bertha Stein R.N. 23:31 10/25/16. BP: deferred due to patient not present. HR: deferred due to patient not present. RR: deferred due to patient not present. O2 saturation: deferred. Temp not taken due to patient not present. Pain level now deferred. Additional comments: pt refused vitals needed to leave. --23:33 Bertha Stein R.N. Locked/Released at 10/25/2016 23:33 by Bertha Stein R.N.
--- NOTE | 2016-10-25 23:36 | ED DISCHARGE INSTRUCTIONS ---
Patient: TIO HAND General Instructions [facility] VisitID: [id number] [place] [address] 36y, F Registration Date/Time: 10/25/2016 Acute urinary tract infection with cystitis. No pyelonephritis or hematuria. Not associated with indwelling catheter or obstruction. INSTRUCTIONS Drink plenty of fluids. Warnings: GENERAL WARNINGS: Return or contact your physician immediately if your condition worsens or changes unexpectedly, if not improving as expected, or if other problems arise. SPECIFICALLY, return if you develop incontinence of urine (loss of bladder control). symptoms worsen. Prescription Medications: Macrobid 100 mg: Take 1 capsule orally every 12 hours for 7 days. No refills. Substitution is permissible. Follow-up: Follow up with your doctor in about three days even if well. Call for an appointment. Summary of care provided to patient. Understanding of the discharge instructions verbalized by patient. ADDITIONAL INFORMATION Bladder Infection,Female (Adult) A bladder infection ("cystitis" or "UTI") usually causes a constant urge to urinate and a burning when passing urine. Urine may be cloudy, smelly or dark. There may be pain in the lower abdomen. A bladder infection occurs when bacteria from the vaginal area enter the bladder opening (urethra). This can occur from sexual intercourse, wearing tight clothing, dehydration and other factors. Home Care: Drink lots of fluids (at least 6-8 glasses a day, unless you must restrict fluids for other medical reasons). This will force the medicine into your urinary system and flush the bacteria out of your body. Avoid sexual intercourse until your symptoms are gone. Avoid caffeine, alcohol and spicy foods. These can irritate the bladder. A bladder infection is treated with antibiotics. You may also be given Pyridium (generic = phenazopyridine) to reduce the burning sensation. This medicine will cause your urine to become a bright orange color. The orange urine may stain clothing. You may wear a pad or panty-liner to protect clothing. Preventing Future Infections: Always wipe from front to back after a bowel movement. Keep the genital area clean and dry. Drink plenty of fluids each day to avoid dehydration. Both sexual partners should wash before intercourse. Urinate right after intercourse to flush out the bladder. Wear cotton underwear and cotton-lined panty hose; avoid tight-fitting pants. If you are on control pills and are having frequent bladder infections, discuss with your doctor. Follow Up: Return to this facility or see your doctor if ALL symptoms are not gone after three days of treatment. Get Prompt Medical Attention if any of the following occur: Fever of 100.4F (38C) or higher, or as directed by your healthcare provider No improvement by the third day of treatment Increasing back or abdominal pain Repeated vomiting; unable to keep medicine down Weakness, dizziness or fainting Vaginal discharge Pain, redness or swelling in the labia (outer vaginal area) Nitrofurantoin, Nitrofurantoin, Macrocrystalline Oral capsule What is this medicine? NITROFURANTOIN (martha caseynaomi yani tamayo) is an antibiotic. It is used to treat urinary tract infections. How should I use this medicine? Take this medicine by mouth with a glass of water. Follow the directions on the prescription label. Take this medicine with food or milk. Take your doses at regular intervals. Do not take your medicine more often than directed. Do not stop taking except on your doctor's advice. Talk to your medication administration professional regarding the use of this medicine in children. While this drug may be prescribed for selected conditions, precautions do apply. What side effects may I notice from receiving this medicine? Side effects that you should report to your doctor or health resident care coordinator as soon as possible: allergic reactions like skin rash or hives, swelling of the face, lips, or tongue chest pain cough difficulty breathing dizziness, drowsiness fever or infection joint aches or pains pale or blue-tinted skin redness, blistering, peeling or loosening of the skin, including inside the mouth tingling, burning, pain, or numbness in hands or feet unusual bleeding or bruising unusually weak or tired yellowing of eyes or skin Side effects that usually do not require medical attention (report to your doctor or health resident care coordinator if they continue or are bothersome): dark urine diarrhea headache loss of appetite nausea or vomiting temporary hair loss What may interact with this medicine? antacids containing magnesium trisilicate probenecid quinolone antibiotics like ciprofloxacin, lomefloxacin, norfloxacin and ofloxacin sulfinpyrazone What if I miss a dose? If you miss a dose, take it as soon as you can. If it is almost time for your next dose, take only that dose. Do not take double or extra doses. Where should I keep my medicine? Keep out of the reach of children. Store at room temperature between 15 and 30 degrees C (59 and 86 degrees F). Protect from light. Throw away any unused medicine after the expiration date. What should I tell my health care provider before I take this medicine? They need to know if you have any of these conditions: anemia diabetes [id number] dehydrogenase deficiency kidney disease liver disease lung disease other chronic illness an unusual or allergic reaction to nitrofurantoin, other antibiotics, other medicines, foods, dyes or preservatives or trying to get breast-feeding What should I watch for while using this medicine? Tell your doctor or health resident care coordinator if your symptoms do not improve or if you get new symptoms. Drink several glasses of water a day. If you are taking this medicine for a long time, visit your doctor for regular checks on your progress. If you are diabetic, you may get a false positive result for sugar in your urine with certain brands of urine tests. Check with your doctor. You have been given the following additional information: Bladder Infection, Female (Adult) Nitrofurantoin, Nitrofurantoin, Macrocrystalline Oral capsule (Electronically signed by Kimi Crocker A.R.N.P. 10/25/2016 23:35)
--- NOTE | 2016-10-25 23:36 | ED MED RECONCILIATION SUMMARY ---
Patient: TIO HAND Medication Reconciliation Report [facility] VisitID: [id number] [place] [address] 36y, F Registration Date/Time: 10/25/2016 Weight: 86.1 kg Height/Length: 65 in. BMI: 31.6 ALLERGIES: Vicodin The patient's Home Medications are listed below: NONE. The source(s) of the original Home Medication information: Not obtained. The following Medications were given to the patient in the Emergency Department: None. The following Medications were prescribed to the patient: Macrobid 100 mg: Take 1 capsule orally every 12 hours for 7 days. No refills. Substitution is permissible. -- Kimi Crocker A.R.N.P.
--- NOTE | 2016-10-25 23:36 | ED MAR SUMMARY ---
..... Medication Administration Record [facility] [address] [place], [place] [id number] Patient: TIO HAND Visit ID: [id number] 36y, F Weight: 86.1 kg Height/Length: 65 in BMI: 31.6 ALLERGIES: Vicodin
--- NOTE | 2016-10-25 23:36 | ED MED RECONCILIATION SUMMARY ---
Patient: TIO HAND Medication Reconciliation Report [facility] VisitID: [id number] [place] [address] 36y, F Registration Date/Time: 10/25/2016 Weight: 86.1 kg Height/Length: 65 in. BMI: 31.6 ALLERGIES: Vicodin The patient's Home Medications are listed below: NONE. The source(s) of the original Home Medication information: Not obtained. The following Medications were given to the patient in the Emergency Department: None. The following Medications were prescribed to the patient: Macrobid 100 mg: Take 1 capsule orally every 12 hours for 7 days. No refills. Substitution is permissible. -- Kimi Crocker A.R.N.P.
--- NOTE | 2016-10-25 23:36 | ED DISCHARGE INSTRUCTIONS ---
Patient: TIO HAND General Instructions [facility] VisitID: [id number] [place] [address] 36y, F Registration Date/Time: 10/25/2016 Acute urinary tract infection with cystitis. No pyelonephritis or hematuria. Not associated with indwelling catheter or obstruction. INSTRUCTIONS Drink plenty of fluids. Warnings: GENERAL WARNINGS: Return or contact your physician immediately if your condition worsens or changes unexpectedly, if not improving as expected, or if other problems arise. SPECIFICALLY, return if you develop incontinence of urine (loss of bladder control). symptoms worsen. Prescription Medications: Macrobid 100 mg: Take 1 capsule orally every 12 hours for 7 days. No refills. Substitution is permissible. Follow-up: Follow up with your doctor in about three days even if well. Call for an appointment. Summary of care provided to patient. Understanding of the discharge instructions verbalized by patient. ADDITIONAL INFORMATION Bladder Infection,Female (Adult) A bladder infection ("cystitis" or "UTI") usually causes a constant urge to urinate and a burning when passing urine. Urine may be cloudy, smelly or dark. There may be pain in the lower abdomen. A bladder infection occurs when bacteria from the vaginal area enter the bladder opening (urethra). This can occur from sexual intercourse, wearing tight clothing, dehydration and other factors. Home Care: Drink lots of fluids (at least 6-8 glasses a day, unless you must restrict fluids for other medical reasons). This will force the medicine into your urinary system and flush the bacteria out of your body. Avoid sexual intercourse until your symptoms are gone. Avoid caffeine, alcohol and spicy foods. These can irritate the bladder. A bladder infection is treated with antibiotics. You may also be given Pyridium (generic = phenazopyridine) to reduce the burning sensation. This medicine will cause your urine to become a bright orange color. The orange urine may stain clothing. You may wear a pad or panty-liner to protect clothing. Preventing Future Infections: Always wipe from front to back after a bowel movement. Keep the genital area clean and dry. Drink plenty of fluids each day to avoid dehydration. Both sexual partners should wash before intercourse. Urinate right after intercourse to flush out the bladder. Wear cotton underwear and cotton-lined panty hose; avoid tight-fitting pants. If you are on control pills and are having frequent bladder infections, discuss with your doctor. Follow Up: Return to this facility or see your doctor if ALL symptoms are not gone after three days of treatment. Get Prompt Medical Attention if any of the following occur: Fever of 100.4F (38C) or higher, or as directed by your healthcare provider No improvement by the third day of treatment Increasing back or abdominal pain Repeated vomiting; unable to keep medicine down Weakness, dizziness or fainting Vaginal discharge Pain, redness or swelling in the labia (outer vaginal area) Nitrofurantoin, Nitrofurantoin, Macrocrystalline Oral capsule What is this medicine? NITROFURANTOIN (martha caseynaomi yani tamayo) is an antibiotic. It is used to treat urinary tract infections. How should I use this medicine? Take this medicine by mouth with a glass of water. Follow the directions on the prescription label. Take this medicine with food or milk. Take your doses at regular intervals. Do not take your medicine more often than directed. Do not stop taking except on your doctor's advice. Talk to your molding press operator regarding the use of this medicine in children. While this drug may be prescribed for selected conditions, precautions do apply. What side effects may I notice from receiving this medicine? Side effects that you should report to your doctor or health lpn care manager as soon as possible: allergic reactions like skin rash or hives, swelling of the face, lips, or tongue chest pain cough difficulty breathing dizziness, drowsiness fever or infection joint aches or pains pale or blue-tinted skin redness, blistering, peeling or loosening of the skin, including inside the mouth tingling, burning, pain, or numbness in hands or feet unusual bleeding or bruising unusually weak or tired yellowing of eyes or skin Side effects that usually do not require medical attention (report to your doctor or health lpn care manager if they continue or are bothersome): dark urine diarrhea headache loss of appetite nausea or vomiting temporary hair loss What may interact with this medicine? antacids containing magnesium trisilicate probenecid quinolone antibiotics like ciprofloxacin, lomefloxacin, norfloxacin and ofloxacin sulfinpyrazone What if I miss a dose? If you miss a dose, take it as soon as you can. If it is almost time for your next dose, take only that dose. Do not take double or extra doses. Where should I keep my medicine? Keep out of the reach of children. Store at room temperature between 15 and 30 degrees C (59 and 86 degrees F). Protect from light. Throw away any unused medicine after the expiration date. What should I tell my health care provider before I take this medicine? They need to know if you have any of these conditions: anemia diabetes [id number] dehydrogenase deficiency kidney disease liver disease lung disease other chronic illness an unusual or allergic reaction to nitrofurantoin, other antibiotics, other medicines, foods, dyes or preservatives or trying to get breast-feeding What should I watch for while using this medicine? Tell your doctor or health lpn care manager if your symptoms do not improve or if you get new symptoms. Drink several glasses of water a day. If you are taking this medicine for a long time, visit your doctor for regular checks on your progress. If you are diabetic, you may get a false positive result for sugar in your urine with certain brands of urine tests. Check with your doctor. You have been given the following additional information: Bladder Infection, Female (Adult) Nitrofurantoin, Nitrofurantoin, Macrocrystalline Oral capsule (Electronically signed by Kimi Crocker A.R.N.P. 10/25/2016 23:35)
--- NOTE | 2016-10-25 23:36 | ED MAR SUMMARY ---
..... Medication Administration Record [facility] [address] [place], [place] [id number] Patient: TIO HAND Visit ID: [id number] 36y, F Weight: 86.1 kg Height/Length: 65 in BMI: 31.6 ALLERGIES: Vicodin
== END 2016-10-25 23:28 | disposition home or self-care (01) ==
LOC: ED SRH 19:45
DX: O23.11 Infections of bladder in pregnancy, first trimester (principal); N30.90 Cystitis, unspecified without hematuria; Z3A.09 9 weeks gestation of pregnancy; Z88.5 Allergy status to narcotic agent
CPT/HCPCS: 90004; 90100; 90148; 90469; 95059; 98428